=== PATIENT | male | born 1975 | race Caucasian/White ===

== ENCOUNTER 2016-08-04 08:21 | Emergency (ER) | payer SELFPAY ==
--- NOTE | 2016-08-04 10:14 | DIAGNOSTIC IMAGING REPORT ---
PROCEDURE: XR CHEST 2 VIEW INDICATION: COUGH ASPLENIC TECHNIQUE: PA and lateral view. COMPARISON: None. FINDINGS: Right basilar probable nipple shadow. Cardiovascular structures are normal. Bony thorax is unremarkable. IMPRESSION: 1. No acute changes.
--- NOTE | 2016-08-04 13:17 | ED NURSING NOTES ---
Clinical Report - Nurses [facility] [address] [place] [address] 08/04/2016 8:23 Patient: MENDEL OLEARY JR TRIAGE Triage time 08:27. Acuity: LEVEL 3. Chief Complaint: COUGH and (dyspnea). Alert. CARLA COMA SCORE: Carla Coma Scale: 15- eyes open spontaneously (4); best verbal response- oriented x 4 (5); best motor response- obeys commands (6). --08:31 Colleen Iglesias R.N. 08:27 08/04/16. BP: 132/75. HR: 103. RR: 18. O2 saturation: 93%. Temp: 98 F (oral). --08:31 Colleen Iglesias R.N. 10:46 08/04/16. Pain level now: 03/24. --10:47 Colleen Iglesias R.N. Weight: 104.3 kg stated. Height/Length: 66 inches Per Patient. BMI: 37.1. --08:30 Colleen Iglesias R.N. Medications None. --08:28 Colleen Iglesias R.N. Medication/allergy information source: the patient. --08:31 Colleen Iglesias R.N. Allergies No Known Drug Allergy. --08:28 Colleen Iglesias R.N. History Arrived by private vehicle. Historian: patient. Accompanied by family. Primary physician (Kristine). Onset. (a "couple days"). SOCIAL HX: Heavy tobacco smoker- less than 1 pack per day. No alcohol use or drug use. FALL RISK ASSESSMENT: Fall risk assessment completed. No fall risk identified. FUNCTIONAL ASSESSMENT: Functional assessment: no impairments noted. LEARNING NEEDS ASSESSMENT: The learning needs assessment revealed no barriers. --08:31 Colleen Iglesias R.N. PROBLEMS: Hypertension. Back Pain. Hernia. Immunizations. --08:29 Colleen Iglesias R.N. ADDITIONAL SURGERIES: Splenectomy. --08:29 Colleen Iglesias R.N. Assessment GENERAL / NEURO / PSYCH: The patient is awake and alert, is oriented and cooperative and appears uncomfortable. He has good eye contact. RESPIRATORY: Respirations not labored. Cough. SKIN: Skin is warm and dry. --08:31 Colleen Iglesias R.N. Interventions ID band on patient. To treatment room. --08:31 Colleen Iglesias R.N. PHYSICAL ASSESSMENT 08:34 08/04/16. Ambulatory to room. Patient gowned. GENERAL / NEURO / PSYCH: The patient is awake and alert, is oriented and cooperative and appears uncomfortable. He has good eye contact. RESPIRATORY: Respirations not labored. Cough. SKIN: Skin is warm and dry. --08:34 Colleen Iglesias R.N. NURSING PROGRESS NOTES 08:35 08/04/16. Pulse oximeter and NIBP monitor placed on patient. Patient gowned. Head of bed elevated. Call light placed in reach. Side rails up x 1. Bed placed in lowest position. Brakes of bed on. --08:35 Colleen Iglesias R.N. EKG was performed by a cayetano and shown to the ED physician. --08:47 Vipul Gomez 09:16 08/04/16. Critical value relayed to ED by lab. Critical value received by RN. Strep - positive. Critical value read back. --09:16 Colleen Iglesias R.N. 09:19 08/04/2016 Site #1 started via IV in the right forearm with an 18g angiocath, with aseptic technique and good blood return; one attempt. Blood drawn: rainbow set. Labeled in the presence of the patient and sent to the lab. Saline lock flushed with 10 mL saline. --09:19 Genet Serrano R.N. 09:08/04/2016 Toradol IVP 30 mg given over 2 minute(s) via site #1. Allergies verified and confirmed 5 rights. IV patency established. IV site checked: no pain, redness, or swelling. IV flushed thoroughly pre- and post-medication administration. --09:19 Genet Serrano R.N. 09:19 08/04/2016 Started bag #1 1000 mL IV Fluids IV NS (Saline); at 1000 mL/hr over 1 hour(s) via site #1 via dial-a-flow. Allergies verified and confirmed 5 rights. IV patency established. IV site checked: no pain, redness, or swelling. IV flushed thoroughly pre- and post-medication administration. --09:19 Genet Serrano R.N. 09:44 08/04/2016 Penicillin V Potassium PO Capsules 500 mg given. Allergies verified and confirmed 5 rights. --09:44 Genet Serrano R.N. 09:48 08/04/2016 PHENERGAN-CODEINE (Promethazine-Codeine) PO Oral Suspension 10 mL given. Allergies verified and confirmed 5 rights. --09:48 Genet Serrano R.N. 09:48 08/04/2016 Prednisone PO Capsules 60 mg given. Allergies verified and confirmed 5 rights. --09:48 Genet Serrano R.N. 09:00 08/04/16. BP: 128/82. HR: 104. RR: 22. O2 saturation: 95% on room air. --10:16 Genet Serrano R.N. 10:25 pt had disconntcted the IV tubing from the SL and had his jacket on when I went in to discharge him; he stated he tied the tubing in a knot and threw the lock in the trash, I asked to see the IV site for my documentation and he took his jacket off and the SL was still intact in his right forearm, lock was DC'd by me, bacitracin and bandaid were applied. --10:40 Colleen Iglesias R.N. 10:30. Reassessment after fluids administered and medication administered. Overall patient status is the same- he states feels the same. RESPIRATORY: The patient reports cough. No respiratory distress. SKIN: Skin is warm and dry. --10:42 Colleen Iglesias R.N. DISPOSITION / DISCHARGE 10:13 08/04/16. BP: 111/53. HR: 101. RR: 20. O2 saturation: 95%. --10:14 Genet Serrano R.N. Departure time: 1030. Condition at departure: stable. No learning barriers present. Discharge instructions provided and reviewed with the patient. Reviewed medication(s). Prescription(s) given to the patient. Patient verbalized understanding. Written instructions provided in Divehi. The patient was discharged home and accompanied by welding tester. He left the Emergency Department ambulatory and via private vehicle. FALL RISK ASSESSMENT: Fall risk assessment completed. No fall risk identified. --10:44 Colleen Iglesias R.N. Locked/Released at 08/04/2016 10:47 by Colleen Iglesias R.N.
--- NOTE | 2016-08-04 13:17 | ED CLINICAL REPORT ---
Clinical Report - Physicians/Mid Levels [facility]ly [facility] [address] [place] [address] 08/04/2016 8:23 Patient: MENDEL OLEARY JR Time Seen: 0845. Arrived- By private vehicle. Historian- patient. HISTORY OF PRESENT ILLNESS Chief Complaint: SORE THROAT. This started past 2 days and is still present and worsening. It was abrupt in onset and has been constant but is not gone now. Pain described as moderate. The patient has had a sore throat. (non-productive cough. no fever. reports no sick contacts. 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 reports throat swelling which he states makes it difficult to breath. does not report dyspnea or chest pain.). Similar symptoms previously: None. Recent medical care: Not recently seen/assessed. REVIEW OF SYSTEMS No fever or difficulty breathing. He has had a cough. All systems otherwise negative, except as recorded above. PAST HISTORY See nurses notes. SOCIAL HISTORY Smoker- current status unknown. No alcohol use or drug use. No recent travel. Is a local resident. ADDITIONAL NOTES The nursing notes have been reviewed. PHYSICAL EXAM Vital Signs: 08/04/2016 08:27 BP: 132/75. HR: 103. RR: 18. O2 saturation: 93%. Temp: 98 F. Blood pressure normal. Oxygen saturation normal. Appearance: Alert. No acute distress. Head: Normal external inspection. Eyes: Pupils equal, round and reactive to light. Conjunctivae and eyelids normal. ENT: Ears normal. Nose normal. Lips normal. Gums normal. No trismus present. Uvula midline. No peritonsillar mass, muffled or hoarse voice, drooling or trismus. (bilateral beefy red tonsils). Neck: Trachea midline. No adenopathy. Thyroid normal. CVS: Normal heart rate and rhythm. Heart sounds normal. Pulses normal. Respiratory: No respiratory distress. Breath sounds normal. Chest nontender. Abdomen: Soft and nontender. No organomegaly. Skin: Normal skin color. No rash. Normal skin turgor. Extremities: Extremities exhibit normal ROM. Extremities nontender. LABS, X-RAYS, AND EKG Chest X-ray: No acute disease. Normal lung markings present. No infiltrate. Views: PA and lateral. The X-rays were independently viewed by me and interpreted contemporaneously by me. Laboratory Tests: CBC w Diff: (KIMANI: 08/04/2016 09:20) ( MsgRcvd 08/04/2016 09:46) Final results Test Result Flag Units (Reference) WHITE BLOOD COUNT 18.8 H K/uL (4.5-11.5) RED BLOOD COUNT 4.82 M/uL (4.50-5.90) HEMOGLOBIN 14.8 gm/dL (13.5-17.5) HEMATOCRIT 44.6 % (41.0-53.0) MEAN CELL VOLUME 92 fL (80-100) MEAN CORPUSCULAR HGB 31 pg (26-34) MEAN CORPUSCULAR HGB CONC 33 g/dL (31-37) RED CELL DISTRIBUTION WIDTH 13.9 % (11.6-14.8) PLATELET COUNT 284 K/uL (150-400) NEUTROPHIL % 74.1 % (50-75) LYMPH % 17.2 L % (25-40) MONO % 5.6 % (3-14) EOSINOPHIL % 2.7 % (0-4) BASOPHIL % 0.4 % (0-2) CMP: (KIMANI: 08/04/2016 09:20) ( MsgRcvd 08/04/2016 10:15) Final results Test Result Flag Units (Reference) GLUCOSE 143 H mg/dL (70-110) BUN 20 H mg/dL (7-18) CREATININE 1.0 mg/dL (0.6-1.3) Estimated GFR >60 mL/min Estimated GFR- >60 mL/min Note: Persistent reduction over 3 months in eGFR<60 mL/min/1.73 m2 defines CKD. Patients with eGFR values>=60 mL/min/1.73 m2 may also have CKD if evidence ofpersistent proteinuria. Additional information may be foundat www.kidney.org. SODIUM 136 mmol/L (136-145) POTASSIUM 4.1 mmol/L (3.5-5.1) CHLORIDE 102 mmol/L (98-107) CARBON DIOXIDE 24 mmol/L (21-32) CALCIUM 9.2 mg/dL (8.5-10.1) TOTAL PROTEIN 8.1 g/dL (6.4-8.2) ALBUMIN 3.9 g/dL (3.3-5.0) BILIRUBIN, TOTAL 0.6 mg/dL (0.0-1.0) ALKALINE PHOSPHATASE 113 U/L (46-116) AST (SGOT) 44 H U/L (15-37) ALT (SGPT) 37 U/L (12-78) Culture, Strep Screen: (KIMANI: 08/04/2016 08:50) ( MsgRcvd 08/04/2016 09:15) Final results Test Result Flag Units (Reference) RAPID STREP SCREEN - THROAT CALLED TO: [facility] -- DATE: 08/04/16 POSITIVE SCREEN: RAPID STREP SCREEN: POSITIVE FOR GROUP A STREP . PROGRESS AND PROCEDURES Course of Care: the patient is a 40-year-old male with past medical history significant for splenectomy presenting for evaluation of symptoms that are likely upper respiratory nature. Because the patient does have a history of splenectomy, however patient is at high risk for having serious bacterial infection. Patient will be monitored and worked up aggressively for possible serious infection. Workup includes blood work chest x-ray, and cultures for rapid strep. patient is agreeable to the treatment and plan. Workup has been ordered. We will monitor the patient closely. Shortly after the laboratory studies and chest x-ray was obtained, patient's rapid strep is noted to be positive. Antibiotics are provided. The rest of the patient's workup was remarkable for elevated white blood cell count at 18.8. No other acute abnormalities noted on patient's workup. I discussed the patient and his workup, diagnosis, home care, follow-up, and return precautions. All questions answered. The patient expressed understanding of these instructions and was agreeable to them. Do not feel the patient needs to be admitted to the hospital at this time or require further emergency department workup/evaluation. The patient does have his spleen taken out however because of the diagnosed etiology of his symptoms due to strep throat, feel patient is a good outpatient candidate. Strict return precautions were provided. Disposition: Discharged. Condition: good. CLINICAL IMPRESSION 08/04/2016 08:27 BP: 132/75. HR: 103. RR: 18. O2 saturation: 93%. Temp: 98 F. Blood pressure normal. Oxygen saturation: borderline. Acute streptococcal pharyngitis Mild leukocytosis (acute). INSTRUCTIONS Warnings: GENERAL WARNINGS: Return or contact your physician immediately if your condition worsens or changes unexpectedly, if not improving as expected, or if other problems arise. Specifically return if pain, vomiting, bleeding, breathing difficulty or fever. worsening swelling, inability to swallow or handle saliva, or other concerns. Your Current Medications: CONTINUE TAKING THE FOLLOWING MEDICATIONS: None*. Prescription Medications: Motrin 600 mg tablets: take 1 tablet orally every 6 hours as needed for pain, stiffness, swelling or fever. Dispense thirty (30). No refill. Substitution is permissible. Penicillin V 500 mg: take 1 tab orally every 12 hours for 10 days. Dispense twenty (20). No refills. (Disp 20 tabs) Phenergan w/ Codeine 10mg / 6.25mg per 5 mL: take 1-2 teaspoons every 6 hours as needed for pain or cough. Dispense sixty (60) mL. No refill. Substitution is permissible. Prednisone 50 mg: take 1 orally every day for 5 days. Dispense five (5). No refills. OTC Medications: Acetaminophen (available over the counter): take according to label instructions. Follow-up: Return to the emergency department. Follow up with your doctor in three days. Reason for referral: recheck today's concerns. Summary of care provided to patient via paper. Screening today revealed the patient's blood pressure to be in the normal range. The patient should follow up with a primary care provider for blood pressure management. Understanding of the discharge instructions verbalized by patient. (Electronically signed by Ranjith Toribio Dr. 08/06/2016 18:09)
--- NOTE | 2016-08-04 13:18 | ED ORDER SUMMARY ---
..... Patient: MENDEL OLEARY JR OrderSheet [facility] VisitID: [id number] [place] [address] 40y, M Registration Date/Time: 08/04/2016 ORDER SHEET Weight: 104.3 kg (stated) Allergies: No Known Drug Allergy GENERAL ORDERS: Chest 2V Urgent (08:53 08/04/2016 Joe Alcala) (Ack 9:03 LNations ER Tech1) (9:49 Alon R.N.) Rapid Influenza Screen (Nasal Pharyngeal) (mucus) Urgent (08:54 08/04/2016 Joe Alcala) (Ack 9:03 LNations ER Tech1) (9:19 LWhalen R.N.) RSV Rapid Screen (Nasal Pharyngeal) (mucus) Urgent (08:54 08/04/2016 Joe Alcala) (Ack 9:03 LNations ER Tech1) (9:19 LWhalen R.N.) CBC w Diff Urgent (08:54 08/04/2016 Joe Alcala) (Ack 9:03 LNations ER Tech1) (9:19 LWhalen R.N.) CMP Urgent (08:54 08/04/2016 Joe Alcala) (Ack 9:03 LNations ER Tech1) (9:19 LWhalen R.N.) Culture, Strep Screen Urgent (08:54 08/04/2016 Joe Alcala) (Ack 9:03 LNations ER Tech1) (9:19 LWhalen R.N.) Pulse oximeter (08:54 08/04/2016 Joe Alcala) (8:58 Alon R.N.) MEDICATION ORDERS: Penicillin V Potassium PO 500 mg (NOW) (09:08/04/2016 Joe Alcala) (9:44 LWhalen R.N.) Phenergan-Codeine PO 10 mL (HIGH ALERT MEDICATION, NOW) (09:25 08/04/2016 Joe Alcala) (9:48 LWhalen R.N.) Prednisone PO 60 mg (NOW) (09:30 08/04/2016 Joe Alcala) (9:48 LWhalen R.N.) IV FLUIDS: IV NS : initial bolus 1000 mL (1000 mL/hr), then none - for X1 (NOW) (08:53 08/04/2016 Joe Alcala) (9:19 John Ware) Toradol IV 30 mg (NOW) (08:54 08/04/2016 Joe Alcala) (9:19 John Ware) ORDER SHEET NOTES: [Electronically signed by Colleen Iglesias R.N. (10:47 08/04/2016)] [Electronically signed by Ranjith Toribio Dr. (18:09 08/06/2016)] [Electronically locked/signed by Colleen Iglesias R.N. (10:47 08/04/2016)]
--- NOTE | 2016-08-04 13:18 | ED ORDER SUMMARY ---
..... Patient: MENDEL OLEARY JR OrderSheet [facility]erg[facility] VisitID: [id number] [place] [address] 40y, M Registration Date/Time: 08/04/2016 ORDER SHEET Weight: 104.3 kg (stated) Allergies: No Known Drug Allergy GENERAL ORDERS: Chest 2V Urgent (08:53 08/04/2016 Joe Alcala) (Ack 9:03 LNations ER Tech1) (9:49 Alon R.N.) Rapid Influenza Screen (Nasal Pharyngeal) (mucus) Urgent (08:54 08/04/2016 Joe Alcala) (Ack 9:03 LNations ER Tech1) (9:19 LWhalen R.N.) RSV Rapid Screen (Nasal Pharyngeal) (mucus) Urgent (08:54 08/04/2016 Joe Alcala) (Ack 9:03 LNations ER Tech1) (9:19 LWhalen R.N.) CBC w Diff Urgent (08:54 08/04/2016 Joe Alcala) (Ack 9:03 LNations ER Tech1) (9:19 LWhalen R.N.) CMP Urgent (08:54 08/04/2016 Joe Alcala) (Ack 9:03 LNations ER Tech1) (9:19 LWhalen R.N.) Culture, Strep Screen Urgent (08:54 08/04/2016 Joe Alcala) (Ack 9:03 LNations ER Tech1) (9:19 LWhalen R.N.) Pulse oximeter (08:54 08/04/2016 Joe Alcala) (8:58 Alon R.N.) MEDICATION ORDERS: Penicillin V Potassium PO 500 mg (NOW) (09:08/04/2016 Joe Alcala) (9:44 LWhalen R.N.) Phenergan-Codeine PO 10 mL (HIGH ALERT MEDICATION, NOW) (09:25 08/04/2016 Joe Alcala) (9:48 LWhalen R.N.) Prednisone PO 60 mg (NOW) (09:30 08/04/2016 Joe Alcala) (9:48 LWhalen R.N.) IV FLUIDS: IV NS : initial bolus 1000 mL (1000 mL/hr), then none - for X1 (NOW) (08:53 08/04/2016 Joe Alcala) (9:19 John Ware) Toradol IV 30 mg (NOW) (08:54 08/04/2016 Joe Alcala) (9:19 John Ware) ORDER SHEET NOTES: [Electronically signed by Colleen Iglesias R.N. (10:47 08/04/2016)] [Electronically signed by Ranjith Toribio Dr. (18:09 08/06/2016)] [Electronically locked/signed by Colleen Iglesias R.N. (10:47 08/04/2016)]
--- NOTE | 2016-08-06 18:09 | ED MED RECONCILIATION SUMMARY ---
Patient: MENDEL OLEARY JR Medication Reconciliation Report [facility] VisitID: [id number] [address] [place] [address] 40y, M Registration Date/Time: 08/04/2016 Weight: 104.3 kg Height/Length: 66 in. BMI: 37.1 ALLERGIES: No Known Drug Allergy The patient's Home Medications are listed below: NONE. The source(s) of the original Home Medication information: patient The following Medications were given to the patient in the Emergency Department: Toradol [IVP] IVP 30 mg, administered: 08/04/2016 9:19:00 AM IV NS IV Fluids bolus 0, then 1000 mL/hr, administered: 08/04/2016 9:19:00 AM Penicillin V Potassium [PO] PO 500 mg, administered: 08/04/2016 9:44:00 AM PHENERGAN-CODEINE [PO] PO 10 mL, administered: 08/04/2016 9:48:00 AM Prednisone [PO] PO 60 mg, administered: 08/04/2016 9:48:00 AM The following Medications were prescribed to the patient: Acetaminophen (available over the counter): take according to label instructions. -- Ranjith Toribio Dr. Motrin 600 mg tablets: take 1 tablet orally every 6 hours as needed for pain, stiffness, swelling or fever. Dispense thirty (30). No refill. Substitution is permissible. -- Ranjith Toribio Dr. Penicillin V 500 mg: take 1 tab orally every 12 hours for 10 days. Dispense twenty (20). No refills.(Disp 20 tabs) -- Ranjith Toribio Dr. Phenergan w/ Codeine 10mg / 6.25mg per 5 mL: take 1-2 teaspoons every 6 hours as needed for pain or cough. Dispense sixty (60) mL. No refill. Substitution is permissible. -- Ranjith Toribio Dr. Prednisone 50 mg: take 1 orally every day for 5 days. Dispense five (5). No refills. -- Ranjith Toribio Dr.
--- NOTE | 2016-08-06 18:09 | ED MAR SUMMARY ---
..... Medication Administration Record [facility] [address] [place] [address] Patient: MENDEL OLEARY Visit ID: [id number] 40y, M Weight: 104.3 kg Height/Length: 66 in BMI: 37.1 ALLERGIES: No Known Drug Allergy Start 09:08/04/2016 Genet Serrano R.N. Medication Administered: IV NS (SALINE), Dose: IV Fluids over 1 hour(s), Rate: 1000 mL/hr, Dispensed: 1000 mL bag, Site: #1 right forearm. Medication Ordered: IV NS : initial bolus 1000 mL (1000 mL/hr), then none - for X1 (NOW). Given 09:08/04/2016 Genet Serrano R.N. Medication Administered: TORADOL [IVP], Dose: 30 mg IVP over 2 minute(s), Site: #1 right forearm. Medication Ordered: Toradol IV 30 mg (NOW). Given 09:08/04/2016 Genet Serrano R.N. Medication Administered: PENICILLIN V POTASSIUM [PO], Dose: 500 mg Capsules PO. Medication Ordered: Penicillin V Potassium PO 500 mg (NOW). Given 09:48 08/04/2016 Genet Serrano R.N. Medication Administered: PHENERGAN-CODEINE [PO] (PROMETHAZINE-CODEINE), Dose: 10 mL Oral Suspension PO. Medication Ordered: Phenergan-Codeine PO 10 mL (HIGH ALERT MEDICATION, NOW). Given 09:08/04/2016 Genet Serrano R.N. Medication Administered: PREDNISONE [PO], Dose: 60 mg Capsules PO. Medication Ordered: Prednisone PO 60 mg (NOW).
--- NOTE | 2016-08-06 18:09 | ED DISCHARGE INSTRUCTIONS ---
Patient: MENDEL OLEARY JR General Instructions Located Within [facility] VisitID: [id number] [place] [address] 40y, M Registration Date/Time: 08/04/2016 08/04/2016 08:27 BP: 132/75. HR: 103. RR: 18. O2 saturation: 93%. Temp: 98 F. Blood pressure normal. Oxygen saturation: borderline. Acute streptococcal pharyngitis Mild leukocytosis (acute). INSTRUCTIONS Warnings: GENERAL WARNINGS: Return or contact your physician immediately if your condition worsens or changes unexpectedly, if not improving as expected, or if other problems arise. Specifically return if pain, vomiting, bleeding, breathing difficulty or fever. worsening swelling, inability to swallow or handle saliva, or other concerns. Your Current Medications: CONTINUE TAKING THE FOLLOWING MEDICATIONS: None*. Prescription Medications: Motrin 600 mg tablets: take 1 tablet orally every 6 hours as needed for pain, stiffness, swelling or fever. Dispense thirty (30). No refill. Substitution is permissible. Penicillin V 500 mg: take 1 tab orally every 12 hours for 10 days. Dispense twenty (20). No refills. (Disp 20 tabs) Phenergan w/ Codeine 10mg / 6.25mg per 5 mL: take 1-2 teaspoons every 6 hours as needed for pain or cough. Dispense sixty (60) mL. No refill. Substitution is permissible. Prednisone 50 mg: take 1 orally every day for 5 days. Dispense five (5). No refills. OTC Medications: Acetaminophen (available over the counter): take according to label instructions. Follow-up: Return to the emergency department. Follow up with your doctor in three days. Reason for referral: recheck today's concerns. Summary of care provided to patient via paper. Screening today revealed the patient's blood pressure to be in the normal range. The patient should follow up with a primary care provider for blood pressure management. Understanding of the discharge instructions verbalized by patient. ADDITIONAL INFORMATION Pharyngitis: Strep [Confirmed] Your test for strep throat was positive. Strep throat is a contagious illness. It is spread by coughing, kissing or by touching others after touching your mouth or nose. Symptoms include throat pain which is worse with swallowing, aching all over, headache and fever. You will be treated with an antibiotic which should make you start to feel better within 1-2 days. Home Care: Rest at home and drink plenty of fluids to avoid dehydration. No school or work for the first two days on antibiotics. You will not be contagious after this time and if you are feeling better, you can return to school or work. Take your antibiotics for a full 10 days, even if you feel better after the first few days of treatment. This is very important to prevent heart or kidney disease that can result as a complication of untreated strep throat infection. Children: Use acetaminophen (Tylenol) for fever, fussiness or discomfort. In infants over six months of age, you may use ibuprofen (Children's Motrin) instead of Tylenol. [NOTE: If your child has chronic liver or kidney disease or ever had a stomach ulcer or GI bleeding, talk with your doctor before using these medicines.] (Aspirin should never be used in anyone under 18 years of age who is ill with a fever. It may cause severe liver damage.)Adults: You may use acetaminophen (Tylenol) or ibuprofen (Motrin, Advil) to control pain or fever, unless another medicine was prescribed for this. [NOTE: If you have chronic liver or kidney disease or ever had a stomach ulcer or GI bleeding, talk with your doctor before using these medicines.] Throat lozenges or sprays (Chloraseptic and others) will reduce pain. Gargling with warm salt water will also reduce throat pain. Dissolve 1/2 teaspoon of salt in 1 glass of warm water. This is especially useful just before meals. Follow Up with your doctor or as directed by our staff if you are not improving over the next week. Get Prompt Medical Attention if any of the following occur: Fever of 100.4F (38C) oral or higher, not better with fever medication New or worsening ear pain, sinus pain or headache Painful lumps in the back of your neck Unable to swallow liquids or open your mouth wide due to throat pain Trouble breathing or noisy breathing Muffled voice New rash Ibuprofen Oral tablet What is this medicine? IBUPROFEN (eye BYOO proe fen) is a non-steroidal anti-inflammatory drug (NSAID). It is used for dental pain, fever, headaches or migraines, osteoarthritis, rheumatoid arthritis, or painful monthly periods. It can also relieve minor aches and pains caused by a cold, flu, or sore throat. How should I use this medicine? Take this medicine by mouth with a glass of water. Follow the directions on the prescription label. Take this medicine with food if your stomach gets upset. Try to not lie down for at least 10 minutes after you take the medicine. Take your medicine at regular intervals. Do not take your medicine more often than directed. A special MedGuide will be given to you by the pharmacist with each prescription and refill. Be sure to read this information carefully each time. Talk to your energy audit advisor regarding the use of this medicine in children. Special care may be needed. What side effects may I notice from receiving this medicine? Side effects that you should report to your doctor or health childcare center administrator as soon as possible: allergic reactions like skin rash, itching or hives, swelling of the face, lips, or tongue black or bloody stools, blood in the urine or in vomit breathing problems changes in vision chest pain general ill feeling or flu-like symptoms nausea or vomiting redness, blistering, peeling or loosening of the skin, including inside the mouth slurred speech or weakness on one side of the body stomach pain unexplained weight gain or swelling unusually weak or tired yellowing of eyes or skin Side effects that usually do not require medical attention (report to your doctor or health childcare center administrator if they continue or are bothersome): constipation or diarrhea dizziness gas or heartburn stomach upset What may interact with this medicine? Do not take this medicine with any of the following medications: cidofovir ketorolac methotrexate pemetrexed This medicine may also interact with the following medications: alcohol aspirin diuretics lithium other drugs for inflammation like prednisone warfarin What if I miss a dose? If you miss a dose, take it as soon as you can. If it is almost time for your next dose, take only that dose. Do not take double or extra doses. Where should I keep my medicine? Keep out of the reach of children. Store at room temperature between 15 and 30 degrees C (59 and 86 degrees F). Keep container tightly closed. Throw away any unused medicine after the expiration date. What should I tell my health care provider before I take this medicine? They need to know if you have any of these conditions: asthma cigarette smoker drink more than 3 alcohol containing drinks a day heart disease or circulation problems such as heart failure or leg edema (fluid retention) high blood pressure kidney disease liver disease stomach bleeding or ulcers an unusual or allergic reaction to ibuprofen, aspirin, other NSAIDS, other medicines, foods, dyes, or preservatives or trying to get breast-feeding What should I watch for while using this medicine? Tell your doctor or healthcare professional if your symptoms do not start to get better or if they get worse. This medicine does not prevent heart attack or stroke. In fact, this medicine may increase the chance of a heart attack or stroke. The chance may increase with longer use of this medicine and in people who have heart disease. If you take aspirin to prevent heart attack or stroke, talk with your doctor or health childcare center administrator. Do not take other medicines that contain aspirin, ibuprofen, or naproxen with this medicine. Side effects such as stomach upset, nausea, or ulcers may be more likely to occur. Many medicines available without a prescription should not be taken with this medicine. This medicine can cause ulcers and bleeding in the stomach and intestines at any time during treatment. Ulcers and bleeding can happen without warning symptoms and can cause . To reduce your risk, do not smoke cigarettes or drink alcohol while you are taking this medicine. You may get drowsy or dizzy. Do not drive, use machinery, or do anything that needs mental alertness until you know how this medicine affects you. Do not stand or sit up quickly, especially if you are an older patient. This reduces the risk of dizzy or fainting spells. This medicine can cause you to bleed more easily. Try to avoid damage to your teeth and gums when you brush or floss your teeth. Penicillin V Potassium Oral tablet What is this medicine? PENICILLIN V (pen i SILL in V) is a penicillin antibiotic. It is used to treat certain kinds of bacterial infections. It will not work for colds, flu, or other viral infections. How should I use this medicine? Take this medicine by mouth with a full glass of water. Follow the directions on the prescription label. Take your medicine at regular intervals. Do not take your medicine more often than directed. Take all of your medicine as directed even if you think your are better. Do not skip doses or stop your medicine early. Talk to your energy audit advisor regarding the use of this medicine in children. While this drug may be prescribed for selected conditions, precautions do apply. What side effects may I notice from receiving this medicine? Side effects that you should report to your doctor or health childcare center administrator as soon as possible: allergic reactions like skin rash or hives, swelling of the face, lips, or tongue breathing problems fever new symptoms of infection redness, blistering, peeling or loosening of the skin, including inside the mouth unusually weak or tired Side effects that usually do not require medical attention (report to your doctor or health childcare center administrator if they continue or are bothersome): diarrhea headache nausea, vomiting sore mouth or tongue stomach upset What may interact with this medicine? control pills methotrexate other antibiotics probenecid some vaccines What if I miss a dose? If you miss a dose, take it as soon as you can. If it is almost time for your next dose, take only that dose. Do not take double or extra doses. Where should I keep my medicine? Keep out of the reach of children. Store at room temperature between 15 and 30 degrees C (59 and 86 degrees F). Keep container tightly closed. Throw away any unused medicine after the expiration date. What should I tell my health care provider before I take this medicine? They need to know if you have any of these conditions: asthma bowel disease, like colitis eczema kidney disease an unusual or allergic reaction to penicillin, cephalosporins, other antibiotics or medicines, foods, tartrazine or other dyes, or preservatives or trying to get breast-feeding What should I watch for while using this medicine? Tell your doctor or health childcare center administrator if your symptoms do not improve. Do not treat diarrhea with over the counter products. Contact your doctor if you have diarrhea that lasts more than 2 days or if it is severe and watery. If you have diabetes, you may get a false-positive result for sugar in your urine. Check with your doctor or health childcare center administrator. control pills may not work properly while you are taking this medicine. Talk to your doctor about using an extra method of control. Prednisone Oral tablet What is this medicine? PREDNISONE (PRED ni sone) is a corticosteroid. It is commonly used to treat inflammation of the skin, joints, lungs, and other organs. Common conditions treated include asthma, allergies, and arthritis. It is also used for other conditions, such as blood disorders and diseases of the adrenal glands. How should I use this medicine? Take this medicine by mouth with a glass of water. Follow the directions on the prescription label. Take this medicine with food. If you are taking this medicine once a day, take it in the morning. Do not take more medicine than you are told to take. Do not suddenly stop taking your medicine because you may develop a severe reaction. Your doctor will tell you how much medicine to take. If your doctor wants you to stop the medicine, the dose may be slowly lowered over time to avoid any side effects. Talk to your energy audit advisor regarding the use of this medicine in children. Special care may be needed. What side effects may I notice from receiving this medicine? Side effects that you should report to your doctor or health childcare center administrator as soon as possible: allergic reactions like skin rash, itching or hives, swelling of the face, lips, or tongue changes in emotions or moods changes in vision depressed mood eye pain fever or chills, cough, sore throat, pain or difficulty passing urine increased thirst swelling of ankles, feet Side effects that usually do not require medical attention (report to your doctor or health childcare center administrator if they continue or are bothersome): confusion, excitement, restlessness headache nausea, vomiting skin problems, acne, thin and shiny skin trouble sleeping weight gain What may interact with this medicine? Do not take this medicine with any of the following medications: metyrapone mifepristone This medicine may also interact with the following medications: aminoglutethimide amphotericin B aspirin and aspirin-like medicines barbiturates certain medicines for diabetes, like glipizide or glyburide cholestyramine cholinesterase inhibitors cyclosporine digoxin diuretics ephedrine female hormones, like estrogens and control pills isoniazid ketoconazole NSAIDS, medicines for pain and inflammation, like ibuprofen or naproxen phenytoin rifampin toxoids vaccines warfarin What if I miss a dose? If you miss a dose, take it as soon as you can. If it is almost time for your next dose, talk to your doctor or health childcare center administrator. You may need to miss a dose or take an extra dose. Do not take double or extra doses without advice. Where should I keep my medicine? Keep out of the reach of children. Store at room temperature between 15 and 30 degrees C (59 and 86 degrees F). Protect from light. Keep container tightly closed. Throw away any unused medicine after the expiration date. What should I tell my health care provider before I take this medicine? They need to know if you have any of these conditions: Louis's syndrome diabetes glaucoma heart disease high blood pressure infection (especially a virus infection such as chickenpox, cold sores, or herpes) kidney disease liver disease mental illness myasthenia gravis osteoporosis seizures stomach or intestine problems thyroid disease an unusual or allergic reaction to lactose, prednisone, other medicines, foods, dyes, or preservatives or trying to get breast-feeding What should I watch for while using this medicine? Visit your doctor or health childcare center administrator for regular checks on your progress. If you are taking this medicine over a prolonged period, carry an identification card with your name and address, the type and dose of your medicine, and your doctor's name and address. This medicine may increase your risk of getting an infection. Tell your doctor or health childcare center administrator if you are around anyone with measles or chickenpox, or if you develop sores or blisters that do not heal properly. If you are going to have surgery, tell your doctor or health childcare center administrator that you have taken this medicine within the last twelve months. Ask your doctor or health childcare center administrator about your diet. You may need to lower the amount of salt you eat. This medicine may affect blood sugar levels. If you have diabetes, check with your doctor or health childcare center administrator before you change your diet or the dose of your diabetic medicine. You have been given the following additional information: Pharyngitis, Strep (Confirmed) Ibuprofen Oral tablet Penicillin V Potassium Oral tablet Prednisone Oral tablet (Electronically signed by Ranjith Toribio Dr. 08/06/2016 18:09)
--- NOTE | 2016-08-06 18:09 | ED DISCHARGE INSTRUCTIONS ---
Patient: MENDEL OLEARY JR General Instructions [facility] VisitID: [id number] [place] [address] 40y, M Registration Date/Time: 08/04/2016 08/04/2016 08:27 BP: 132/75. HR: 103. RR: 18. O2 saturation: 93%. Temp: 98 F. Blood pressure normal. Oxygen saturation: borderline. Acute streptococcal pharyngitis Mild leukocytosis (acute). INSTRUCTIONS Warnings: GENERAL WARNINGS: Return or contact your physician immediately if your condition worsens or changes unexpectedly, if not improving as expected, or if other problems arise. Specifically return if pain, vomiting, bleeding, breathing difficulty or fever. worsening swelling, inability to swallow or handle saliva, or other concerns. Your Current Medications: CONTINUE TAKING THE FOLLOWING MEDICATIONS: None*. Prescription Medications: Motrin 600 mg tablets: take 1 tablet orally every 6 hours as needed for pain, stiffness, swelling or fever. Dispense thirty (30). No refill. Substitution is permissible. Penicillin V 500 mg: take 1 tab orally every 12 hours for 10 days. Dispense twenty (20). No refills. (Disp 20 tabs) Phenergan w/ Codeine 10mg / 6.25mg per 5 mL: take 1-2 teaspoons every 6 hours as needed for pain or cough. Dispense sixty (60) mL. No refill. Substitution is permissible. Prednisone 50 mg: take 1 orally every day for 5 days. Dispense five (5). No refills. OTC Medications: Acetaminophen (available over the counter): take according to label instructions. Follow-up: Return to the emergency department. Follow up with your doctor in three days. Reason for referral: recheck today's concerns. Summary of care provided to patient via paper. Screening today revealed the patient's blood pressure to be in the normal range. The patient should follow up with a primary care provider for blood pressure management. Understanding of the discharge instructions verbalized by patient. ADDITIONAL INFORMATION Pharyngitis: Strep [Confirmed] Your test for strep throat was positive. Strep throat is a contagious illness. It is spread by coughing, kissing or by touching others after touching your mouth or nose. Symptoms include throat pain which is worse with swallowing, aching all over, headache and fever. You will be treated with an antibiotic which should make you start to feel better within 1-2 days. Home Care: Rest at home and drink plenty of fluids to avoid dehydration. No school or work for the first two days on antibiotics. You will not be contagious after this time and if you are feeling better, you can return to school or work. Take your antibiotics for a full 10 days, even if you feel better after the first few days of treatment. This is very important to prevent heart or kidney disease that can result as a complication of untreated strep throat infection. Children: Use acetaminophen (Tylenol) for fever, fussiness or discomfort. In infants over six months of age, you may use ibuprofen (Children's Motrin) instead of Tylenol. [NOTE: If your child has chronic liver or kidney disease or ever had a stomach ulcer or GI bleeding, talk with your doctor before using these medicines.] (Aspirin should never be used in anyone under 18 years of age who is ill with a fever. It may cause severe liver damage.)Adults: You may use acetaminophen (Tylenol) or ibuprofen (Motrin, Advil) to control pain or fever, unless another medicine was prescribed for this. [NOTE: If you have chronic liver or kidney disease or ever had a stomach ulcer or GI bleeding, talk with your doctor before using these medicines.] Throat lozenges or sprays (Chloraseptic and others) will reduce pain. Gargling with warm salt water will also reduce throat pain. Dissolve 1/2 teaspoon of salt in 1 glass of warm water. This is especially useful just before meals. Follow Up with your doctor or as directed by our staff if you are not improving over the next week. Get Prompt Medical Attention if any of the following occur: Fever of 100.4F (38C) oral or higher, not better with fever medication New or worsening ear pain, sinus pain or headache Painful lumps in the back of your neck Unable to swallow liquids or open your mouth wide due to throat pain Trouble breathing or noisy breathing Muffled voice New rash Ibuprofen Oral tablet What is this medicine? IBUPROFEN (eye BYOO proe fen) is a non-steroidal anti-inflammatory drug (NSAID). It is used for dental pain, fever, headaches or migraines, osteoarthritis, rheumatoid arthritis, or painful monthly periods. It can also relieve minor aches and pains caused by a cold, flu, or sore throat. How should I use this medicine? Take this medicine by mouth with a glass of water. Follow the directions on the prescription label. Take this medicine with food if your stomach gets upset. Try to not lie down for at least 10 minutes after you take the medicine. Take your medicine at regular intervals. Do not take your medicine more often than directed. A special MedGuide will be given to you by the pharmacist with each prescription and refill. Be sure to read this information carefully each time. Talk to your education diagnostician regarding the use of this medicine in children. Special care may be needed. What side effects may I notice from receiving this medicine? Side effects that you should report to your doctor or health health care social worker as soon as possible: allergic reactions like skin rash, itching or hives, swelling of the face, lips, or tongue black or bloody stools, blood in the urine or in vomit breathing problems changes in vision chest pain general ill feeling or flu-like symptoms nausea or vomiting redness, blistering, peeling or loosening of the skin, including inside the mouth slurred speech or weakness on one side of the body stomach pain unexplained weight gain or swelling unusually weak or tired yellowing of eyes or skin Side effects that usually do not require medical attention (report to your doctor or health health care social worker if they continue or are bothersome): constipation or diarrhea dizziness gas or heartburn stomach upset What may interact with this medicine? Do not take this medicine with any of the following medications: cidofovir ketorolac methotrexate pemetrexed This medicine may also interact with the following medications: alcohol aspirin diuretics lithium other drugs for inflammation like prednisone warfarin What if I miss a dose? If you miss a dose, take it as soon as you can. If it is almost time for your next dose, take only that dose. Do not take double or extra doses. Where should I keep my medicine? Keep out of the reach of children. Store at room temperature between 15 and 30 degrees C (59 and 86 degrees F). Keep container tightly closed. Throw away any unused medicine after the expiration date. What should I tell my health care provider before I take this medicine? They need to know if you have any of these conditions: asthma cigarette smoker drink more than 3 alcohol containing drinks a day heart disease or circulation problems such as heart failure or leg edema (fluid retention) high blood pressure kidney disease liver disease stomach bleeding or ulcers an unusual or allergic reaction to ibuprofen, aspirin, other NSAIDS, other medicines, foods, dyes, or preservatives or trying to get breast-feeding What should I watch for while using this medicine? Tell your doctor or healthcare professional if your symptoms do not start to get better or if they get worse. This medicine does not prevent heart attack or stroke. In fact, this medicine may increase the chance of a heart attack or stroke. The chance may increase with longer use of this medicine and in people who have heart disease. If you take aspirin to prevent heart attack or stroke, talk with your doctor or health health care social worker. Do not take other medicines that contain aspirin, ibuprofen, or naproxen with this medicine. Side effects such as stomach upset, nausea, or ulcers may be more likely to occur. Many medicines available without a prescription should not be taken with this medicine. This medicine can cause ulcers and bleeding in the stomach and intestines at any time during treatment. Ulcers and bleeding can happen without warning symptoms and can cause . To reduce your risk, do not smoke cigarettes or drink alcohol while you are taking this medicine. You may get drowsy or dizzy. Do not drive, use machinery, or do anything that needs mental alertness until you know how this medicine affects you. Do not stand or sit up quickly, especially if you are an older patient. This reduces the risk of dizzy or fainting spells. This medicine can cause you to bleed more easily. Try to avoid damage to your teeth and gums when you brush or floss your teeth. Penicillin V Potassium Oral tablet What is this medicine? PENICILLIN V (pen i SILL in V) is a penicillin antibiotic. It is used to treat certain kinds of bacterial infections. It will not work for colds, flu, or other viral infections. How should I use this medicine? Take this medicine by mouth with a full glass of water. Follow the directions on the prescription label. Take your medicine at regular intervals. Do not take your medicine more often than directed. Take all of your medicine as directed even if you think your are better. Do not skip doses or stop your medicine early. Talk to your education diagnostician regarding the use of this medicine in children. While this drug may be prescribed for selected conditions, precautions do apply. What side effects may I notice from receiving this medicine? Side effects that you should report to your doctor or health health care social worker as soon as possible: allergic reactions like skin rash or hives, swelling of the face, lips, or tongue breathing problems fever new symptoms of infection redness, blistering, peeling or loosening of the skin, including inside the mouth unusually weak or tired Side effects that usually do not require medical attention (report to your doctor or health health care social worker if they continue or are bothersome): diarrhea headache nausea, vomiting sore mouth or tongue stomach upset What may interact with this medicine? control pills methotrexate other antibiotics probenecid some vaccines What if I miss a dose? If you miss a dose, take it as soon as you can. If it is almost time for your next dose, take only that dose. Do not take double or extra doses. Where should I keep my medicine? Keep out of the reach of children. Store at room temperature between 15 and 30 degrees C (59 and 86 degrees F). Keep container tightly closed. Throw away any unused medicine after the expiration date. What should I tell my health care provider before I take this medicine? They need to know if you have any of these conditions: asthma bowel disease, like colitis eczema kidney disease an unusual or allergic reaction to penicillin, cephalosporins, other antibiotics or medicines, foods, tartrazine or other dyes, or preservatives or trying to get breast-feeding What should I watch for while using this medicine? Tell your doctor or health health care social worker if your symptoms do not improve. Do not treat diarrhea with over the counter products. Contact your doctor if you have diarrhea that lasts more than 2 days or if it is severe and watery. If you have diabetes, you may get a false-positive result for sugar in your urine. Check with your doctor or health health care social worker. control pills may not work properly while you are taking this medicine. Talk to your doctor about using an extra method of control. Prednisone Oral tablet What is this medicine? PREDNISONE (PRED ni sone) is a corticosteroid. It is commonly used to treat inflammation of the skin, joints, lungs, and other organs. Common conditions treated include asthma, allergies, and arthritis. It is also used for other conditions, such as blood disorders and diseases of the adrenal glands. How should I use this medicine? Take this medicine by mouth with a glass of water. Follow the directions on the prescription label. Take this medicine with food. If you are taking this medicine once a day, take it in the morning. Do not take more medicine than you are told to take. Do not suddenly stop taking your medicine because you may develop a severe reaction. Your doctor will tell you how much medicine to take. If your doctor wants you to stop the medicine, the dose may be slowly lowered over time to avoid any side effects. Talk to your education diagnostician regarding the use of this medicine in children. Special care may be needed. What side effects may I notice from receiving this medicine? Side effects that you should report to your doctor or health health care social worker as soon as possible: allergic reactions like skin rash, itching or hives, swelling of the face, lips, or tongue changes in emotions or moods changes in vision depressed mood eye pain fever or chills, cough, sore throat, pain or difficulty passing urine increased thirst swelling of ankles, feet Side effects that usually do not require medical attention (report to your doctor or health health care social worker if they continue or are bothersome): confusion, excitement, restlessness headache nausea, vomiting skin problems, acne, thin and shiny skin trouble sleeping weight gain What may interact with this medicine? Do not take this medicine with any of the following medications: metyrapone mifepristone This medicine may also interact with the following medications: aminoglutethimide amphotericin B aspirin and aspirin-like medicines barbiturates certain medicines for diabetes, like glipizide or glyburide cholestyramine cholinesterase inhibitors cyclosporine digoxin diuretics ephedrine female hormones, like estrogens and control pills isoniazid ketoconazole NSAIDS, medicines for pain and inflammation, like ibuprofen or naproxen phenytoin rifampin toxoids vaccines warfarin What if I miss a dose? If you miss a dose, take it as soon as you can. If it is almost time for your next dose, talk to your doctor or health health care social worker. You may need to miss a dose or take an extra dose. Do not take double or extra doses without advice. Where should I keep my medicine? Keep out of the reach of children. Store at room temperature between 15 and 30 degrees C (59 and 86 degrees F). Protect from light. Keep container tightly closed. Throw away any unused medicine after the expiration date. What should I tell my health care provider before I take this medicine? They need to know if you have any of these conditions: Louis's syndrome diabetes glaucoma heart disease high blood pressure infection (especially a virus infection such as chickenpox, cold sores, or herpes) kidney disease liver disease mental illness myasthenia gravis osteoporosis seizures stomach or intestine problems thyroid disease an unusual or allergic reaction to lactose, prednisone, other medicines, foods, dyes, or preservatives or trying to get breast-feeding What should I watch for while using this medicine? Visit your doctor or health health care social worker for regular checks on your progress. If you are taking this medicine over a prolonged period, carry an identification card with your name and address, the type and dose of your medicine, and your doctor's name and address. This medicine may increase your risk of getting an infection. Tell your doctor or health health care social worker if you are around anyone with measles or chickenpox, or if you develop sores or blisters that do not heal properly. If you are going to have surgery, tell your doctor or health health care social worker that you have taken this medicine within the last twelve months. Ask your doctor or health health care social worker about your diet. You may need to lower the amount of salt you eat. This medicine may affect blood sugar levels. If you have diabetes, check with your doctor or health health care social worker before you change your diet or the dose of your diabetic medicine. You have been given the following additional information: Pharyngitis, Strep (Confirmed) Ibuprofen Oral tablet Penicillin V Potassium Oral tablet Prednisone Oral tablet (Electronically signed by Ranjith Toribio Dr. 08/06/2016 18:09)
--- NOTE | 2016-08-06 18:09 | ED MAR SUMMARY ---
..... Medication Administration Record [facility] [address] [place] [address] Patient: MENDEL OLEARY Visit ID: [id number] 40y, M Weight: 104.3 kg Height/Length: 66 in BMI: 37.1 ALLERGIES: No Known Drug Allergy Start 09:08/04/2016 Genet Serrano R.N. Medication Administered: IV NS (SALINE), Dose: IV Fluids over 1 hour(s), Rate: 1000 mL/hr, Dispensed: 1000 mL bag, Site: #1 right forearm. Medication Ordered: IV NS : initial bolus 1000 mL (1000 mL/hr), then none - for X1 (NOW). Given 09:08/04/2016 Genet Serrano R.N. Medication Administered: TORADOL [IVP], Dose: 30 mg IVP over 2 minute(s), Site: #1 right forearm. Medication Ordered: Toradol IV 30 mg (NOW). Given 09:08/04/2016 Genet Serrano R.N. Medication Administered: PENICILLIN V POTASSIUM [PO], Dose: 500 mg Capsules PO. Medication Ordered: Penicillin V Potassium PO 500 mg (NOW). Given 09:48 08/04/2016 Genet Serrano R.N. Medication Administered: PHENERGAN-CODEINE [PO] (PROMETHAZINE-CODEINE), Dose: 10 mL Oral Suspension PO. Medication Ordered: Phenergan-Codeine PO 10 mL (HIGH ALERT MEDICATION, NOW). Given 09:08/04/2016 Genet Serrano R.N. Medication Administered: PREDNISONE [PO], Dose: 60 mg Capsules PO. Medication Ordered: Prednisone PO 60 mg (NOW).
--- NOTE | 2016-08-06 18:09 | ED MED RECONCILIATION SUMMARY ---
Patient: MENDEL OLEARY JR Medication Reconciliation Report [facility] VisitID: [id number] [address] [place] [address] 40y, M Registration Date/Time: 08/04/2016 Weight: 104.3 kg Height/Length: 66 in. BMI: 37.1 ALLERGIES: No Known Drug Allergy The patient's Home Medications are listed below: NONE. The source(s) of the original Home Medication information: patient The following Medications were given to the patient in the Emergency Department: Toradol [IVP] IVP 30 mg, administered: 08/04/2016 9:19:00 AM IV NS IV Fluids bolus 0, then 1000 mL/hr, administered: 08/04/2016 9:19:00 AM Penicillin V Potassium [PO] PO 500 mg, administered: 08/04/2016 9:44:00 AM PHENERGAN-CODEINE [PO] PO 10 mL, administered: 08/04/2016 9:48:00 AM Prednisone [PO] PO 60 mg, administered: 08/04/2016 9:48:00 AM The following Medications were prescribed to the patient: Acetaminophen (available over the counter): take according to label instructions. -- Ranjith Toribio Dr. Motrin 600 mg tablets: take 1 tablet orally every 6 hours as needed for pain, stiffness, swelling or fever. Dispense thirty (30). No refill. Substitution is permissible. -- Ranjith Toribio Dr. Penicillin V 500 mg: take 1 tab orally every 12 hours for 10 days. Dispense twenty (20). No refills.(Disp 20 tabs) -- Ranjith Toribio Dr. Phenergan w/ Codeine 10mg / 6.25mg per 5 mL: take 1-2 teaspoons every 6 hours as needed for pain or cough. Dispense sixty (60) mL. No refill. Substitution is permissible. -- Ranjith Toribio Dr. Prednisone 50 mg: take 1 orally every day for 5 days. Dispense five (5). No refills. -- Ranjith Toribio Dr.
== END 2016-08-04 10:30 | disposition home or self-care (01) ==
LOC: ED SRH 08:21
DX: J02.0 Streptococcal pharyngitis (principal); D72.829 Elevated white blood cell count, unspecified; F17.200 Nicotine dependence, unspecified, uncomplicated
CPT/HCPCS: 90100; 90154; 95059

== ENCOUNTER 2016-08-12 01:35 | Observation (INO) | payer SELFPAY ==
[~2016-08-12] VITALS: Ht 170.2 cm; Wt 94.6 kg
--- NOTE | 2016-08-12 05:18 | DIAGNOSTIC IMAGING REPORT ---
PROCEDURE: XR CHEST 2 VIEW INDICATION: Wheezing TECHNIQUE: PA and lateral view. COMPARISON: Chest x-ray 08/04/2016 FINDINGS: Lungs are clear. Cardiovascular structures are normal. Bony thorax is unremarkable. No significant interval change. IMPRESSION: 1. Negative chest.
--- NOTE | 2016-08-12 05:43 | ED NURSING NOTES ---
Clinical Report - Nurses [facility] [address] [place] [address] 08/12/2016 1:36 Patient: MENDEL OLEARY JR TRIAGE Triage time 01:43 Aug 12 2016. Acuity: LEVEL 3. Chief Complaint: COUGH, RUNNY NOSE and SORE THROAT. KANDI COMA SCORE: [place] Coma Scale: 15- eyes open spontaneously (4); best verbal response- oriented x 4 (5); best motor response- obeys commands (6). --01:45 Genet Serrano R.N. 01:43 08/12/16. BP: 127/83. HR: 99. --01:45 Genet Serrano R.N. 01:45 08/12/16. RR: 20. O2 saturation: 96%. Temp: 98.4 F. Pain level now 10. --01:46 Genet Serrano R.N. Weight: 104.3 kg stated. Height/Length: 67 inches Per Patient. BMI: 36. --01:45 Genet Serrano R.N. Medications None. --01:43 Genet Serrano R.N. Allergies No Known Drug Allergy. --01:43 Genet Serrano R.N. History Arrived by private vehicle. Historian: patient. Onset. (since last week). He has had a nasal discharge, chest congestion, chills, fatigue and a headache. He has had difficulty breathing. Reports muscle aches. No photophobia or sinus pain. PAST MEDICAL HX: Immunizations: up-to-date. SOCIAL HX: Light tobacco smoker (cigarette)- less than 1/2 a pack per day. History of drug use: methamphetamines. No alcohol use. SELF HARM ASSESSMENT: A self harm assessment was performed. The patient answered "no" to the question "Have you recently felt down, depressed, or hopeless?" and "Do you have thoughts of harming or killing yourself?". FALL RISK ASSESSMENT: Fall risk assessment completed. No fall risk identified. NUTRITIONAL RISK ASSESSMENT: The nutritional risk assessment revealed no deficiencies. FUNCTIONAL ASSESSMENT: Functional assessment: no impairments noted. LEARNING NEEDS ASSESSMENT: The learning needs assessment revealed no barriers. ABUSE ASSESSMENT: Abuse assessment: (yes) The patient was asked "Do you feel safe in your home?". SKIN INTEGRITY ASSESSMENT: Skin integrity risk assessment completed. No skin integrity risk identified. --01:45 Genet Serrano R.N. PROBLEMS: Leukocytosis. Pharyngitis. Hypertension. Back Pain. Hernia. Immunizations. --01:44 Genet Serrano R.N. ADDITIONAL SURGERIES: Splenectomy. --01:44 Genet Serrano R.N. Interventions ID band on patient. --01:45 Genet Serrano R.N. PHYSICAL ASSESSMENT Ambulatory to room. GENERAL / NEURO / PSYCH: Alert. Oriented X 4. Appears anxious and in distress. HEENT: Pupils equal, round and reactive to light. Ears within normal limits. Nares within normal limits. Hoarse voice. Mucous membranes are pink. RESPIRATORY: Respirations not labored. ( exp wheezes). CVS: Normal sinus rhythm noted. Capillary refill less than 2 seconds. SKIN: Skin is warm and dry. Normal skin turgor. --01:47 Genet Serrano R.N. NURSING PROGRESS NOTES The plan of care for this patient has been created. Pulse oximeter and NIBP monitor placed on patient. Head of bed elevated (45). Reassurance given. Call light placed in reach. Side rails up x 1. Bed placed in lowest position. Brakes of bed on. --01:48 Genet Serrano R.N. 02:24 08/12/2016 Prednisone PO Tablets 60 mg given. Allergies verified and confirmed 5 rights. --02:24 Genet Serrano R.N. 03:33 08/12/2016 Duoneb (Ipratropium-Albuterol) Neb TX Nebulizer 1 unit dose given. Given by the respiratory therapist. Allergies verified and confirmed 5 rights. --04:33 Genet Serrano R.N. 04:07 08/12/2016 Albuterol Neb TX Nebulizer 5 mg given. Given by the respiratory therapist. Allergies verified and confirmed 5 rights. --04:32 Genet Serrano R.N. 04:42 08/12/2016 Site #1 started via IV in the right hand with an 20g angiocath, with aseptic technique and good blood return; one attempt. Blood drawn: rainbow set. Labeled in the presence of the patient and sent to the lab. Saline lock flushed with 10 mL saline. --04:47 Genet Serrano R.N. 04:42 08/12/2016 Magnesium Sulfate (Magnesium Sulfate in D5W) IVP 2 gm given over 15 minute(s) via site #1. Allergies verified and confirmed 5 rights. IV patency established. IV site checked: no pain, redness, or swelling. IV flushed thoroughly pre- and post-medication administration. --04:47 Genet Serrano R.N. 04:08/12/16. BP: 185/89. HR: 89. RR: 20. O2 saturation: 90% on room air. Additional comments: patient resting soundly . 03:08/12/16. BP: 152/90. HR: 87. RR: 20. O2 saturation: 92% on room air. 02:08/12/16. BP: 127/90. HR: 72. RR: 20. O2 saturation: 92% on room air. 01:08/12/16. RR: 20. O2 saturation: 96%. Temp: 98.4 F. Pain level now 3/10. --05:39 Genet Serrano R.N. 05:40 08/12/16. O2 saturation: 82%. --05:41 Genet Serrano R.N. ( Patient sleeping soundly +snoring sat's dropping to 81-84% on RA applied 2L O2 NC sat's up to 91 percent.). --05:41 Genet Serrano R.N. 05:51 08/12/2016 Started 500 mg of Azithromycin IVPB in bag #1 250 mL; at 255 mL/hr over 1 hour(s) via site #1 via IV pump. Allergies verified and confirmed 5 rights. IV patency established. IV site checked: no pain, redness, or swelling. IV flushed thoroughly pre- and post-medication administration. --05:56 Genet Serrano R.N. 05:56 08/12/2016 Albuterol Neb TX Nebulizer 3 unit dose given. Given by the respiratory therapist. Allergies verified and confirmed 5 rights. --05:56 Genet Serrano R.N. 06:04 08/12/2016 SOLU-MEDROL (MethylPREDNISolone Sodium Succ) IVP 60 mg given over 2 minute(s) via site #1. Allergies verified and confirmed 5 rights. IV patency established. IV site checked: no pain, redness, or swelling. IV flushed thoroughly pre- and post-medication administration. --06:04 Genet Serrano R.N. 06:12 08/12/2016 Azithromycin IVPB Discontinued: bag #1 infused. Total amount infused: 250 mL. IV patency established. IV site checked: no pain, redness, or swelling. IV flushed thoroughly. --06:17 Genet Serrano R.N. 06:40 08/12/16. ( Report given to Radha alvarez AC.). --07:01 Genet Serrano R.N. 06:47 08/12/2016 Site #[address] upon transfer; patent. Good blood return present. Converted to saline lock and flushed with 10 mL saline. --07:02 Genet Serrano R.N. DISPOSITION / DISCHARGE Departure time: 06:50 Aug 12 2016. Admitted to Acute Care. --07:00 Genet Serrano R.N. 06:58 08/12/16. BP: 131/73. HR: 91. RR: 18. O2 saturation: 93%. Temp: 98.9 F. Pain level now 0/10. --07:00 Genet Serrano R.N. Locked/Released at 08/12/2016 7:03 by Genet Serrano R.N.
--- NOTE | 2016-08-12 05:43 | ED ORDER SUMMARY ---
..... Patient: MENDEL OLEARY JR OrderSheet [facility] VisitID: [id number] [address] [place] [address] 40y, M Registration Date/Time: 08/12/2016 ORDER SHEET Weight: 104.3 kg (stated) Allergies: No Known Drug Allergy GENERAL ORDERS: Chest 2V Urgent (02:05 08/12/2016 Joe Alcala) (Ack 2:07 LMuller) (2:08 LWhalen R.N.) Sofa Back Upholsterer (Continuous) (Respiratory Distress) (02:05 08/12/2016 Joe Alcala) (2:08 LWhalen R.N.) Pulse oximeter (02:06 08/12/2016 Joe Alcala) (2:08 LWhalen R.N.) CBC w Diff Urgent (04:26 08/12/2016 Joe Alcala) (Ack 4:39 LMuller) (4:47 LWhalen R.N.) BMP Urgent (04:26 08/12/2016 Joe Alcala) (Ack 4:39 LMuller) (4:47 LWhalen R.N.) Oxygen (2 L/min) (NC) (05:38 08/12/2016 Joe Alcala) (5:41 LWhalen R.N.) Urine Drug Screen Urgent (05:43 08/12/2016 Joe Alcala) (Ack 5:46 LMuller) (7:02 LWhalen R.N.) MEDICATION ORDERS: DuoNeb Neb Tx 1 unit dose (NOW) (02:05 08/12/2016 Joe Alcala) (Ack 2:08 LWhalen R.N.) (4:33 LWhalen R.N.) Prednisone PO 60 mg (NOW) (02:16 08/12/2016 Joe Alcala) (2:24 LWhalen R.N.) Albuterol Neb Tx 5 mg (once now) (02:59 08/12/2016 Joe Alcala) (4:32 LWhalen R.N.) Albuterol Neb Tx 3 unit doses (NOW) (05:29 08/12/2016 Joe Alcala) (5:56 LWhalluzma R.N.) IV FLUIDS: Magnesium Sulfate IV 2 gm/50mL (once now over 15 - 20 minutes for wheezing) (04:26 08/12/2016 Joe Alcala) (4:47 LWhalen R.N.) Azithromycin IV 500 mg/250 mL (NOW) (05:32 08/12/2016 Joe Alcala) (5:56 LWhalluzma R.N.) Solu-MEDROL IV 60 mg (NOW) (05:42 08/12/2016 Joe Alcala) (6:04 LWhalen R.N.) ORDER SHEET NOTES: [Electronically signed by Genet Serrano R.N. (07:03 08/12/2016)] [Electronically signed by Ranjith Toribio Dr. (21:18 08/18/2016)] [Electronically locked/signed by Genet Serrano R.N. (07:03 08/12/2016)]
--- NOTE | 2016-08-12 05:43 | ED ORDER SUMMARY ---
..... Patient: MENDEL OLEARY JR OrderSheet [facility] VisitID: [id number] [address] [place] [address] 40y, M Registration Date/Time: 08/12/2016 ORDER SHEET Weight: 104.3 kg (stated) Allergies: No Known Drug Allergy GENERAL ORDERS: Chest 2V Urgent (02:05 08/12/2016 Joe Alcala) (Ack 2:07 LMuller) (2:08 LWhalen R.N.) Community Relations Rep (Continuous) (Respiratory Distress) (02:05 08/12/2016 Joe Alcala) (2:08 LWhalen R.N.) Pulse oximeter (02:06 08/12/2016 Joe Alcala) (2:08 LWhalen R.N.) CBC w Diff Urgent (04:26 08/12/2016 Joe Alcala) (Ack 4:39 LMuller) (4:47 LWhalen R.N.) BMP Urgent (04:26 08/12/2016 Joe Alcala) (Ack 4:39 LMuller) (4:47 LWhalen R.N.) Oxygen (2 L/min) (NC) (05:38 08/12/2016 Joe Alcala) (5:41 LWhalen R.N.) Urine Drug Screen Urgent (05:43 08/12/2016 oJe Alcala) (Ack 5:46 LMuller) (7:02 LWhalen R.N.) MEDICATION ORDERS: DuoNeb Neb Tx 1 unit dose (NOW) (02:05 08/12/2016 Joe Alcala) (Ack 2:08 LWhalen R.N.) (4:33 LWhalen R.N.) Prednisone PO 60 mg (NOW) (02:16 08/12/2016 Joe Alcala) (2:24 LWhalen R.N.) Albuterol Neb Tx 5 mg (once now) (02:59 08/12/2016 Joe Alcala) (4:32 LWhalen R.N.) Albuterol Neb Tx 3 unit doses (NOW) (05:29 08/12/2016 Joe Alcala) (5:56 LWhalluzma R.N.) IV FLUIDS: Magnesium Sulfate IV 2 gm/50mL (once now over 15 - 20 minutes for wheezing) (04:26 08/12/2016 Joe Alcala) (4:47 LWhalen R.N.) Azithromycin IV 500 mg/250 mL (NOW) (05:32 08/12/2016 Joe Alcala) (5:56 LWhalluzma R.N.) Solu-MEDROL IV 60 mg (NOW) (05:42 08/12/2016 Joe Alcala) (6:04 LWhalen R.N.) ORDER SHEET NOTES: [Electronically signed by Genet Serrano R.N. (07:03 08/12/2016)] [Electronically signed by Ranjith Toribio Dr. (21:18 08/18/2016)] [Electronically locked/signed by Genet Serrano R.N. (07:03 08/12/2016)]
--- NOTE | 2016-08-12 05:43 | ED CLINICAL REPORT ---
Clinical Report - Physicians/Mid Levels [facility] [address] [place] [address] 08/12/2016 1:36 Patient: MENDEL OLEARY JR Arrived- By private vehicle. Historian- patient. HISTORY OF PRESENT ILLNESS Chief Complaint: DYSPNEA and WHEEZING. This started past 2 days and is still present and worsening. It was abrupt in onset and has been constant but is not gone now. The dyspnea is described as severe. The patient has had a dry cough. No sputum production, orthopnea or chest pain or discomfort. See nurses notes for current asthma threapy. Asthma triggers: (no hx of asthma). (reports no family history of asthma. does not recall what he was doing before it happened.). Similar symptoms previously: None. Recent medical care: Not recently seen/assessed. REVIEW OF SYSTEMS No fever, chills, palpitations or skin rash. All systems otherwise negative, except as recorded above. PAST HISTORY See nurses notes. Medications: None. Allergies: No Known Drug Allergy. SOCIAL HISTORY Never smoker. No alcohol use or drug use. No recent travel. Is a local resident. ADDITIONAL NOTES The nursing notes have been reviewed. PHYSICAL EXAM Vital Signs: 08/12/2016 01:45 RR: 20. O2 saturation: 96%. Temp: 98.4 F. 08/12/2016 01:43 BP: 127/83. HR: 99. Blood pressure normal. Oxygen saturation normal. Appearance: Alert. No acute distress. Eyes: Pupils equal, round and reactive to light. Eyes normal inspection. ENT: Ears normal. Nose normal. Pharynx normal. Uvula midline. Neck: Normal inspection. Neck supple. CVS: Normal heart rate and rhythm. Heart sounds normal. Pulses normal. Respiratory: Mild respiratory distress with accessory muscle use. Expiratory moderate bilateral wheezes diffusely. No stridor, rales or rhonchi. Abdomen: Soft and nontender. No organomegaly. Skin: Skin warm and dry. Normal skin color. No rash. Normal skin turgor. Extremities: Extremities exhibit normal ROM. LABS, X-RAYS, AND EKG Chest X-ray: No acute disease. Normal lung markings present. No infiltrate. Views: PA and lateral. Technique: good. The X-rays were independently viewed by me. Laboratory Tests: CBC w Diff: (KIMANI: 08/12/2016 04:45) ( MsgRcvd 08/12/2016 05:07) Final results Test Result Flag Units (Reference) WHITE BLOOD COUNT 15.8 H K/uL (4.5-11.5) RED BLOOD COUNT 4.97 M/uL (4.50-5.90) HEMOGLOBIN 15.2 gm/dL (13.5-17.5) HEMATOCRIT 46.1 % (41.0-53.0) MEAN CELL VOLUME 93 fL (80-100) MEAN CORPUSCULAR HGB 31 pg (26-34) MEAN CORPUSCULAR HGB CONC 33 g/dL (31-37) RED CELL DISTRIBUTION WIDTH 13.8 % (11.6-14.8) PLATELET COUNT 301 K/uL (150-400) NEUTROPHIL % 76.3 H % (50-75) LYMPH % 17.6 L % (25-40) MONO % 3.6 % (3-14) EOSINOPHIL % 2.5 % (0-4) BASOPHIL % 0 % (0-2) BMP: (KIMANI: 08/12/2016 04:45) ( MsgRcvd 08/12/2016 05:13) Final results Test Result Flag Units (Reference) GLUCOSE 171 H mg/dL (70-110) BUN 15 mg/dL (7-18) CREATININE 0.9 mg/dL (0.6-1.3) Estimated GFR >60 mL/min Estimated GFR- >60 mL/min Note: Persistent reduction over 3 months in eGFR<60 mL/min/1.73 m2 defines CKD. Patients with eGFR values>=60 mL/min/1.73 m2 may also have CKD if evidence ofpersistent proteinuria. Additional information may be foundat www.kidney.org. SODIUM 139 mmol/L (136-145) POTASSIUM 4.2 mmol/L (3.5-5.1) CHLORIDE 102 mmol/L (98-107) CARBON DIOXIDE 29 mmol/L (21-32) CALCIUM 8.7 mg/dL (8.5-10.1) . PROGRESS AND PROCEDURES Course of Care: The patient is a pleasant 40 yo male with hx of substance abuse presenting for wheezing. patient is a first time wheezer. Reports no incident that caused the wheezing. He does not full disclose to me substance abuse during the onset of wheezing however did warn him of thehigh likelihood of bronchospasm with illicit substances. Differental includes reactive airway disease, pneumonia, and substance induced bronchospasm. Patient agreeable to treatment and plan. Patient reevaluated. Wheezing louder with better air movement. Steroids given. Patient will require several more treatments. Patient was reevaluated and still with significant wheezing. Patient not a good outpatient candidate. Mag given. Spoke to hospitalist who will accept the patient. Patient agreeable to treatment and plan. Discussed with patient his workup, diagnosis, and plan of care. All questions answered. Patient admitted. Prior to departure from the ED, patient improved but still requires admission. Critical care performed (45 minutes). Time is exclusive of separately billable procedures. Time includes: direct patient care, patient reassessment, coordination of patient care, interpretation of data (laboratory data and chest xrays), review of patient's medical records, medical consultation and documentation of patient care. Disposition: Discharged. Condition: good. (Electronically signed by Ranjith Toribio Dr. 08/18/2016 21:18)
[2016-08-12 06:56] VITALS: BP 136/85
--- NOTE | 2016-08-12 08:26 | Progress Note ---
Subjective General Admission History and Physical Examination-24 hour observation note Patient Name: Doug Hodgson Admission Date: August 12, 2016 Primary Care Provider: Crow Carmona M.D. Attending Physician: León Angel M.D. Admitting Physician: León Angel M.D. SUBJECTIVE Historian: Patient Reliability: Fair Chief Complaint: Shortness of breath History of Present Illness: The patient is a 40-year-old white male with a significant past medical history of illicit drug use-methamphetamine/heroin who presented to [facility] emergency department on the day of admission secondary to complaints of shortness of breath. GI evaluation was consistent with asthma/reactive airway disease. Secondary to the above, the patient was admitted by Michael Perdue M.D. for further evaluation and treatment. The history of present was began 2 days prior to admission when the patient experienced increasing shortness of breath and wheezing. This apparently worsened over the 2 days prior to admission. This apparently worsened over to 2 days prior to admission. It was associated with dry cough. There is no associated fever or chills. No previous history of asthma or reactive airway disease. Secondary to increasing shortness of breath the patient presented to [facility] emergency department for further evaluation and treatment. [facility] ER evaluation showed the patient to have vital signs of blood pressure 127/83 mmHg, pulse 99, respirations 20, O2 sat 96%. The patient was noted to develop hypoxemia on room air during his ER visit. Physical examination showed bilateral expiratory wheezes no rales noted. The patient was treated with standard therapy but had persistent bronchospasm. Secondary to the above the patient was admitted for further evaluation and treatment with a diagnosis of reactive airway disease/status asthmaticus for further evaluation and treatment. PAST MEDICAL HISTORY Illnesses: 1. Illicit drug use-methamphetamine/heroin Allergies: 1. None Medications: 1. None Surgery: 1. None Injuries: 1. No significant Hospitalizations: 1. None FAMILY HISTORY Noncontributory SOCIAL HISTORY 1. Marital Status: Single 2. [employer]: [employer] HABITS 1. Tobacco: None 2. Drugs: Methamphetamine/heroin 3. Alcohol: None HEALTH SUPERVISION Item/Test 1. Not reviewed IMMUNIZATIONS: 1. Pneumococcal: No previous 2. Influenza: Unknown 3. Tetanus: Unknown REVIEW OF SYSTEMS Remarkable for those things stated in the history of present illness and past medical history. Seventeen point review of system completed with the following notable findings: Otherwise noncontributory. Physical Exam Vital Signs / I&Os Vital Signs Date Time Temp Pulse Resp B/P Pulse O2 O2 Flow FiO2 Ox Delivery Rate 08/12 0656 98.1 95 18 136/85 92 Nasal 2.0 Cannula 08/12 0557 2.0 General Appearance Alert, Oriented X3, Cooperative, No acute distress HEENT Atraumatic, PERRLA, EOMI Lungs Clear to auscultation, Normal air movement Neck Supple, No JVD, No masses Cardiovascular Regular rate and rhythm, Normal S1 and S2, No murmurs, gallops, rubs Abdomen Normal bowel sounds, Soft, No tenderness Extremities No cyanosis, No clubbing, No edema Neurological Cranial nerves intact, Strength 5/5 x4 ext's, No lateralizing signs Psych/Mental Status Mental status normal, Mood normal LAB Results Laboratory Tests 08/12 08/12 08/12 0445 0445 0445 Chemistry Plasma Sodium (136 - 145 mmol/L) 139 TNP Plasma Potassium (3.5 - 5.1 mmol/L) 4.2 TNP Plasma Chloride (98 - 107 mmol/L) 102 TNP CO2 (Enzymatic) (21 - 32 mmol/L) 29 TNP BUN (7 - 18 mg/dL) 15 TNP Creatinine (0.6 - 1.3 mg/dL) 0.9 TNP Est GFR ( Amer) (mL/min) >60 TNP Est GFR (Non-Af Amer) (mL/min) >60 TNP Glucose (70 - 110 mg/dL) 171 TNP Hemoglobin A1c % (4.5 - 6.2 %) 6.1 Plasma Calcium (8.5 - 10.1 mg/dL) 8.7 TNP Plasma Magnesium (1.8 - 2.4 mg/dL) 2.0 Total Bilirubin (0.0 - 1.0 mg/dL) 0.4 AST (15 - 37 U/L) 27 ALT (12 - 78 U/L) 31 Alkaline Phosphatase (46 - 116 U/L) 107 Total Protein (6.4 - 8.2 g/dL) 8.1 Albumin (3.3 - 5.0 g/dL) 3.5 Hematology WBC (4.5 - 11.5 K/uL) 15.8 RBC (4.50 - 5.90 M/uL) 4.97 Hgb (13.5 - 17.5 gm/dL) 15.2 Hct (41.0 - 53.0 %) 46.1 MCV (80 - 100 fL) 93 MCH (26 - 34 pg) 31 RDW (11.6 - 14.8 %) 13.8 Neut % (Auto) (50 - 75 %) 76.3 Lymph % (Auto) (25 - 40 %) 17.6 [place] % (Auto) (3 - 14 %) 3.6 Eos % (Auto) (0 - 4 %) 2.5 Baso % (Auto) (0 - 2 %) 0 Plt Count, EDTA (150 - 400 K/uL) 301 PUBS MCHC (31 - 37 g/dL) 33 Imaging Chest x-ray IMPRESSION: 1. Negative chest. Dictated by: CHAZ ARCINIEGA MD D: DALE;08/12/16 0518 Assessment and Plan Problem List 1. Illicit drug use Status Chronic Onset Date Unknown Plan -patient with history of illicit drug use-methamphetamine/heroin -Encouraged post discharge absence from illicit drugs -Recommended enrollment in drug treatment program 2. Status asthmaticus Plan -The patient presents with findings of status asthmaticus/reactive airway disease -DuoNeb, albuterol, Solu-Medrol, and supplemental oxygen. -Monitor -Status improved since admission, patient states he is exhibiting no shortness of breath or wheezing at this time -Paln discharge today. OP follow up with PCP Current status: Fair, unstable Anticipated discharge date: Discharge today Anticipated discharge placement: Home Patient care time: Time spent in chart review, patient interview, physical exam, CPOE, and care documentation: 70 minutes Visit to patient today: 2 Complexity of care: High Patient symptoms resolved. No hypoxemia with ambulation. OP followup as above. See DC instructions. E&M Codes Admit & Discharge: Comp/High/46835 Patient care time: Time spent in chart review, patient interview, physical exam, CPOE, and care documentation: 70 minutes Visit to patient today: 2 Complexity of care: High E&M Codes Admit & Discharge: Comp/High/88574 Visit to patient today: 2 Complexity of care: High E&M Codes Admit & Discharge: Comp/High/10011
--- NOTE | 2016-08-12 08:26 | Progress Note ---
Subjective General Admission History and Physical Examination-24 hour observation note Patient Name: Doug Hodgson Admission Date: August 12, 2016 Primary Care Provider: Crow Carmona M.D. Attending Physician: León Angel M.D. Admitting Physician: León Angel M.D. SUBJECTIVE Historian: Patient Reliability: Fair Chief Complaint: Shortness of breath History of Present Illness: The patient is a 40-year-old white male with a significant past medical history of illicit drug use-methamphetamine/heroin who presented to [facility] emergency department on the day of admission secondary to complaints of shortness of breath. GI evaluation was consistent with asthma/reactive airway disease. Secondary to the above, the patient was admitted by Michael Perdue M.D. for further evaluation and treatment. The history of present was began 2 days prior to admission when the patient experienced increasing shortness of breath and wheezing. This apparently worsened over the 2 days prior to admission. This apparently worsened over to 2 days prior to admission. It was associated with dry cough. There is no associated fever or chills. No previous history of asthma or reactive airway disease. Secondary to increasing shortness of breath the patient presented to [facility] emergency department for further evaluation and treatment. [facility] ER evaluation showed the patient to have vital signs of blood pressure 127/83 mmHg, pulse 99, respirations 20, O2 sat 96%. The patient was noted to develop hypoxemia on room air during his ER visit. Physical examination showed bilateral expiratory wheezes no rales noted. The patient was treated with standard therapy but had persistent bronchospasm. Secondary to the above the patient was admitted for further evaluation and treatment with a diagnosis of reactive airway disease/status asthmaticus for further evaluation and treatment. PAST MEDICAL HISTORY Illnesses: 1. Illicit drug use-methamphetamine/heroin Allergies: 1. None Medications: 1. None Surgery: 1. None Injuries: 1. No significant Hospitalizations: 1. None FAMILY HISTORY Noncontributory SOCIAL HISTORY 1. Marital Status: Single 2. Confucianism: Gnosticism HABITS 1. Tobacco: None 2. Drugs: Methamphetamine/heroin 3. Alcohol: None HEALTH SUPERVISION Item/Test 1. Not reviewed IMMUNIZATIONS: 1. Pneumococcal: No previous 2. Influenza: Unknown 3. Tetanus: Unknown REVIEW OF SYSTEMS Remarkable for those things stated in the history of present illness and past medical history. Seventeen point review of system completed with the following notable findings: Otherwise noncontributory. Physical Exam Vital Signs / I&Os Vital Signs Date Time Temp Pulse Resp B/P Pulse O2 O2 Flow FiO2 Ox Delivery Rate 08/12 0656 98.1 95 18 136/85 92 Nasal 2.0 Cannula 08/12 0557 2.0 General Appearance Alert, Oriented X3, Cooperative, No acute distress HEENT Atraumatic, PERRLA, EOMI Lungs Clear to auscultation, Normal air movement Neck Supple, No JVD, No masses Cardiovascular Regular rate and rhythm, Normal S1 and S2, No murmurs, gallops, rubs Abdomen Normal bowel sounds, Soft, No tenderness Extremities No cyanosis, No clubbing, No edema Neurological Cranial nerves intact, Strength 5/5 x4 ext's, No lateralizing signs Psych/Mental Status Mental status normal, Mood normal LAB Results Laboratory Tests 08/12 08/12 08/12 0445 0445 0445 Chemistry Plasma Sodium (136 - 145 mmol/L) 139 TNP Plasma Potassium (3.5 - 5.1 mmol/L) 4.2 TNP Plasma Chloride (98 - 107 mmol/L) 102 TNP CO2 (Enzymatic) (21 - 32 mmol/L) 29 TNP BUN (7 - 18 mg/dL) 15 TNP Creatinine (0.6 - 1.3 mg/dL) 0.9 TNP Est GFR ( Amer) (mL/min) >60 TNP Est GFR (Non-Af Amer) (mL/min) >60 TNP Glucose (70 - 110 mg/dL) 171 TNP Hemoglobin A1c % (4.5 - 6.2 %) 6.1 Plasma Calcium (8.5 - 10.1 mg/dL) 8.7 TNP Plasma Magnesium (1.8 - 2.4 mg/dL) 2.0 Total Bilirubin (0.0 - 1.0 mg/dL) 0.4 AST (15 - 37 U/L) 27 ALT (12 - 78 U/L) 31 Alkaline Phosphatase (46 - 116 U/L) 107 Total Protein (6.4 - 8.2 g/dL) 8.1 Albumin (3.3 - 5.0 g/dL) 3.5 Hematology WBC (4.5 - 11.5 K/uL) 15.8 RBC (4.50 - 5.90 M/uL) 4.97 Hgb (13.5 - 17.5 gm/dL) 15.2 Hct (41.0 - 53.0 %) 46.1 MCV (80 - 100 fL) 93 MCH (26 - 34 pg) 31 RDW (11.6 - 14.8 %) 13.8 Neut % (Auto) (50 - 75 %) 76.3 Lymph % (Auto) (25 - 40 %) 17.6 Harlan % (Auto) (3 - 14 %) 3.6 Eos % (Auto) (0 - 4 %) 2.5 Baso % (Auto) (0 - 2 %) 0 Plt Count, EDTA (150 - 400 K/uL) 301 PUBS MCHC (31 - 37 g/dL) 33 Imaging Chest x-ray IMPRESSION: 1. Negative chest. Dictated by: CHAZ ARCINIEGA MD D: DALE;08/12/16 0518 Assessment and Plan Problem List 1. Illicit drug use Status Chronic Onset Date Unknown Plan -patient with history of illicit drug use-methamphetamine/heroin -Encouraged post discharge absence from illicit drugs -Recommended enrollment in drug treatment program 2. Status asthmaticus Plan -The patient presents with findings of status asthmaticus/reactive airway disease -DuoNeb, albuterol, Solu-Medrol, and supplemental oxygen. -Monitor -Status improved since admission, patient states he is exhibiting no shortness of breath or wheezing at this time -Paln discharge today. OP follow up with PCP Current status: Fair, unstable Anticipated discharge date: Discharge today Anticipated discharge placement: Home Patient care time: Time spent in chart review, patient interview, physical exam, CPOE, and care documentation: 70 minutes Visit to patient today: 2 Complexity of care: High Patient symptoms resolved. No hypoxemia with ambulation. OP followup as above. See DC instructions. E&M Codes Admit & Discharge: Comp/High/66388 Patient care time: Time spent in chart review, patient interview, physical exam, CPOE, and care documentation: 70 minutes Visit to patient today: 2 Complexity of care: High E&M Codes Admit & Discharge: Comp/High/81815 Visit to patient today: 2 Complexity of care: High E&M Codes Admit & Discharge: Comp/High/19204
[2016-08-12 10:15] VITALS: BP 123/74
[2016-08-12] MEDS ORDERED: PREDNISONE20 MG PO (13:27)
[2016-08-12] MEDS ORDERED: COMBIVENT RESPIMAT IN (13:27)
--- NOTE | 2016-08-12 13:28 | Provider's Discharge Care Plan ---
Problem, Goal, Plan Problem List 1. Reactive airway disease Goals: Improve disease control, Prevent disease progress Instructions: Follow up as directed, Take meds as directed
--- NOTE | 2016-08-12 13:28 | Provider's Discharge Care Plan ---
Problem, Goal, Plan Problem List 1. Reactive airway disease Goals: Improve disease control, Prevent disease progress Instructions: Follow up as directed, Take meds as directed
--- NOTE | 2016-08-18 21:18 | ED MED RECONCILIATION SUMMARY ---
Patient: SAMINA OLEARYLINDSAY Newton JR Medication Reconciliation Report [facility] VisitID: [id number] [address] [place] [address] 40y, M Registration Date/Time: 08/12/2016 Weight: 104.3 kg Height/Length: 67 in. BMI: 36.0 ALLERGIES: No Known Drug Allergy The patient's Home Medications are listed below: NONE. The source(s) of the original Home Medication information: Not obtained. The following Medications were given to the patient in the Emergency Department: Prednisone [PO] PO 60 mg, administered: 08/12/2016 2:24:00 AM Albuterol [Neb Tx] Neb TX 5 mg, administered: 08/12/2016 4:07:00 AM Duoneb [Neb Tx] Neb TX 1 unit dose, administered: 08/12/2016 3:33:00 AM Magnesium Sulfate [IVP] IVP 2 gm, administered: 08/12/2016 4:42:00 AM Azithromycin [IVPB] IVPB bolus 0, then 500 mg 255 mL/hr, administered: 08/12/2016 5:51:00 AM Albuterol [Neb Tx] Neb TX 3 unit dose, administered: 08/12/2016 5:56:00 AM SOLU-MEDROL [IVP] IVP 60 mg, administered: 08/12/2016 6:04:00 AM The following Medications were prescribed to the patient: None.
--- NOTE | 2016-08-18 21:18 | ED MED RECONCILIATION SUMMARY ---
Patient: SAMINA OLEARYLINDSAY Newton JR Medication Reconciliation Report [facility] VisitID: [id number] [address] [place] [address] 40y, M Registration Date/Time: 08/12/2016 Weight: 104.3 kg Height/Length: 67 in. BMI: 36.0 ALLERGIES: No Known Drug Allergy The patient's Home Medications are listed below: NONE. The source(s) of the original Home Medication information: Not obtained. The following Medications were given to the patient in the Emergency Department: Prednisone [PO] PO 60 mg, administered: 08/12/2016 2:24:00 AM Albuterol [Neb Tx] Neb TX 5 mg, administered: 08/12/2016 4:07:00 AM Duoneb [Neb Tx] Neb TX 1 unit dose, administered: 08/12/2016 3:33:00 AM Magnesium Sulfate [IVP] IVP 2 gm, administered: 08/12/2016 4:42:00 AM Azithromycin [IVPB] IVPB bolus 0, then 500 mg 255 mL/hr, administered: 08/12/2016 5:51:00 AM Albuterol [Neb Tx] Neb TX 3 unit dose, administered: 08/12/2016 5:56:00 AM SOLU-MEDROL [IVP] IVP 60 mg, administered: 08/12/2016 6:04:00 AM The following Medications were prescribed to the patient: None.
--- NOTE | 2016-08-18 21:18 | ED MAR SUMMARY ---
..... Medication Administration Record [facility] [address] [place] [address] Patient: MENDEL OLEARY Visit ID: [id number] 40y, M Weight: 104.3 kg Height/Length: 67 in BMI: 36 ALLERGIES: No Known Drug Allergy Given 02:24 08/12/2016 Genet Serrano R.N. Medication Administered: PREDNISONE [PO], Dose: 60 mg Tablets PO. Medication Ordered: Prednisone PO 60 mg (NOW). Given 03:33 08/12/2016 Genet Serrano R.N. Medication Administered: DUONEB [NEB TX] (IPRATROPIUM-ALBUTEROL), Dose: 1 unit dose Nebulizer Neb TX. Medication Ordered: DuoNeb Neb Tx 1 unit dose (NOW). Given 04:07 08/12/2016 Genet Serrano R.N. Medication Administered: ALBUTEROL [NEB TX], Dose: 5 mg Nebulizer Neb TX. Medication Ordered: Albuterol Neb Tx 5 mg (once now). Given 04:42 08/12/2016 Genet Serrano R.N. Medication Administered: MAGNESIUM SULFATE [IVP] (MAGNESIUM SULFATE IN D5W), Dose: 2 gm IVP over 15 minute(s), Site: #1 right hand. Medication Ordered: Magnesium Sulfate IV 2 gm/50mL (once now over 15 - 20 minutes for wheezing). Start 05:51 08/12/2016 Genet Serrano R.N., Stop 06:12 08/12/2016 Genet Serrano R.N. Medication Administered: AZITHROMYCIN [IVPB], Dose: 500 mg IVPB over 1 hour(s), Rate: 255 mL/hr, Dispensed: 250 mL bag, Site: #1 right hand. Medication Ordered: Azithromycin IV 500 mg/250 mL (NOW). Given 05:56 08/12/2016 Genet Serrano R.N. Medication Administered: ALBUTEROL [NEB TX], Dose: 3 unit dose Nebulizer Neb TX. Medication Ordered: Albuterol Neb Tx 3 unit doses (NOW). Given 06:04 08/12/2016 Zach, Genet, R.N. Medication Administered: SOLU-MEDROL [IVP] (METHYLPREDNISOLONE SODIUM SUCC), Dose: 60 mg IVP over 2 minute(s), Site: #1 right hand. Medication Ordered: Solu-MEDROL IV 60 mg (NOW).
--- NOTE | 2016-08-18 21:18 | ED MAR SUMMARY ---
..... Medication Administration Record [facility] [address] [place] [address] Patient: MENDEL OLEARY Visit ID: [id number] 40y, M Weight: 104.3 kg Height/Length: 67 in BMI: 36 ALLERGIES: No Known Drug Allergy Given 02:24 08/12/2016 Genet Serrano R.N. Medication Administered: PREDNISONE [PO], Dose: 60 mg Tablets PO. Medication Ordered: Prednisone PO 60 mg (NOW). Given 03:33 08/12/2016 Genet Serrano R.N. Medication Administered: DUONEB [NEB TX] (IPRATROPIUM-ALBUTEROL), Dose: 1 unit dose Nebulizer Neb TX. Medication Ordered: DuoNeb Neb Tx 1 unit dose (NOW). Given 04:07 08/12/2016 Genet Serrano R.N. Medication Administered: ALBUTEROL [NEB TX], Dose: 5 mg Nebulizer Neb TX. Medication Ordered: Albuterol Neb Tx 5 mg (once now). Given 04:42 08/12/2016 Genet Serrano R.N. Medication Administered: MAGNESIUM SULFATE [IVP] (MAGNESIUM SULFATE IN D5W), Dose: 2 gm IVP over 15 minute(s), Site: #1 right hand. Medication Ordered: Magnesium Sulfate IV 2 gm/50mL (once now over 15 - 20 minutes for wheezing). Start 05:51 08/12/2016 Genet Serrano R.N., Stop 06:12 08/12/2016 Genet Serrano R.N. Medication Administered: AZITHROMYCIN [IVPB], Dose: 500 mg IVPB over 1 hour(s), Rate: 255 mL/hr, Dispensed: 250 mL bag, Site: #1 right hand. Medication Ordered: Azithromycin IV 500 mg/250 mL (NOW). Given 05:56 08/12/2016 Genet Serrano R.N. Medication Administered: ALBUTEROL [NEB TX], Dose: 3 unit dose Nebulizer Neb TX. Medication Ordered: Albuterol Neb Tx 3 unit doses (NOW). Given 06:04 08/12/2016 Zach, Genet, R.N. Medication Administered: SOLU-MEDROL [IVP] (METHYLPREDNISOLONE SODIUM SUCC), Dose: 60 mg IVP over 2 minute(s), Site: #1 right hand. Medication Ordered: Solu-MEDROL IV 60 mg (NOW).
== END 2016-08-12 14:10 | disposition home or self-care (01) ==
LOC: ED SRH 01:35 → TRANS SRH 05:48 → ACUTE2 SRH 05:48
PROVIDERS: ADMIT Family Medicine
DX: J45.902 Unspecified asthma with status asthmaticus (principal); Z72.0 Tobacco use; F15.10 Other stimulant abuse, uncomplicated; F11.10 Opioid abuse, uncomplicated
CPT/HCPCS: 29230; 29242; 90047; 90100; 91286; 92720; 92760; 92761; 92762; 92763; 92764; 92765; 92766; 92767; 95059

== ENCOUNTER 2016-09-09 18:30 | Emergency (ER) | payer SELFPAY ==
[~2016-09-09 18:30] MED LIST: COMBIVENT RESPIMAT IN; PREDNISONE20 MG PO
--- NOTE | 2016-09-09 19:55 | DIAGNOSTIC IMAGING REPORT ---
PROCEDURE: XR CHEST 2 VIEW INDICATION: SHORTNESS OF BREATH TECHNIQUE: PA and lateral views. COMPARISON: Compared to chest x-ray and 08/12/2016 and 08/04/2016. FINDINGS: Lungs are clear. Heart and mediastinum are normal. Thorax is normal. IMPRESSION: 1. Negative chest.
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
--- NOTE | 2016-09-09 21:18 | ED ORDER SUMMARY ---
..... Patient: MENDEL OLEARY JR OrderSheet [facility] VisitID: [id number] [address] [place] [address] 40y, M Registration Date/Time: 09/09/2016 ORDER SHEET Weight: 104.3 kg (stated) Allergies: No Known Drug Allergy GENERAL ORDERS: Chest 2V Urgent (18:53 09/09/2016 Jose Alcala) (Ack 18:54 LNations ER Tech1) (20:07 [facility]) MEDICATION ORDERS: DuoNeb Neb Tx 1 unit dose (NOW) (18:37 09/09/2016 Jose Alcala) (18:54 Jayme R.N.) Prednisone PO 40 mg (NOW) (18:38 09/09/2016 Jose Alcala) (18:53 Jayme R.N.) Augmentin PO 875 mg (NOW) (19:16 09/09/2016 Jose Alcala) (19:27 EInderbitzen R.N.) Albuterol Neb Tx 10 mg continuous (NOW) (19:21 09/09/2016 Jose Alcala) (19:29 EInderbitzen R.N.) IV FLUIDS: ORDER SHEET NOTES: [Electronically signed by Rebecca Perry R.N. (21:31 09/09/2016)] [Electronically signed by Jacinto Ness Dr. (22:40 09/09/2016)] [Electronically locked/signed by Rebecca Perry R.N. (21:31 09/09/2016)]
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
--- NOTE | 2016-09-09 21:18 | ED ORDER SUMMARY ---
..... Patient: MENDEL OLEARY JR OrderSheet [facility] VisitID: [id number] [address] [place] [address] 40y, M Registration Date/Time: 09/09/2016 ORDER SHEET Weight: 104.3 kg (stated) Allergies: No Known Drug Allergy GENERAL ORDERS: Chest 2V Urgent (18:53 09/09/2016 Jose Alcala) (Ack 18:54 LNations ER Tech1) (20:07 [facility]) MEDICATION ORDERS: DuoNeb Neb Tx 1 unit dose (NOW) (18:37 09/09/2016 Jose Alcala) (18:54 Jayme R.N.) Prednisone PO 40 mg (NOW) (18:38 09/09/2016 Jose Alcala) (18:53 Jayme R.N.) Augmentin PO 875 mg (NOW) (19:16 09/09/2016 Jose Alcala) (19:27 EInderbitzen R.N.) Albuterol Neb Tx 10 mg continuous (NOW) (19:21 09/09/2016 Jose Alcala) (19:29 EInderbitzen R.N.) IV FLUIDS: ORDER SHEET NOTES: [Electronically signed by Rebecca Perry R.N. (21:31 09/09/2016)] [Electronically signed by Jacinto Ness Dr. (22:40 09/09/2016)] [Electronically locked/signed by Rebecca Perry R.N. (21:31 09/09/2016)]
--- NOTE | 2016-09-09 22:40 | ED MED RECONCILIATION SUMMARY ---
Patient: MENDEL OLEARY JR Medication Reconciliation Report [facility] VisitID: [id number] [address] [place] [address] 40y, M Registration Date/Time: 09/09/2016 Weight: 104.3 kg Height/Length: 67 in. BMI: 36.0 ALLERGIES: No Known Drug Allergy The patient's Home Medications are listed below: CONTINUE TAKING THE FOLLOWING MEDICATIONS: Albuterol Sulfate HFA Inhalation The source(s) of the original Home Medication information: Not obtained. The following Medications were given to the patient in the Emergency Department: Prednisone [PO] PO 40 mg, administered: 09/09/2016 6:43:00 PM Duoneb [Neb Tx] Neb TX 1 unit dose, administered: 09/09/2016 6:44:00 PM Augmentin [PO] PO 875 mg, administered: 09/09/2016 7:27:00 PM ALBUTEROL NEB W ATROVENT Neb TX 10 mg, administered: 09/09/2016 7:29:00 PM The following Medications were prescribed to the patient: Augmentin 875 mg: take 1 tablet orally every 12 hours for 7 days. No refill. Substitution is permissible.(Start on 09/10/16) -- Jacinto Ness Dr. Prednisone 20 mg: take 2 orally every day for 4 days. Dispense sufficient quantity. No refills.(Start on 09/10/16) -- Jacinto Ness Dr.
--- NOTE | 2016-09-09 22:40 | ED DISCHARGE INSTRUCTIONS ---
Patient: MENDEL OLEARY JR General Instructions [facility] VisitID: [id number] [place] [address] 40y, M Registration Date/Time: 09/09/2016 INSTRUCTIONS Do not smoke. Seek medical help to quit smoking. Your Current Medications: CONTINUE TAKING THE FOLLOWING MEDICATIONS: Albuterol Sulfate HFA Inhalation. Prescription Medications: Augmentin 875 mg: take 1 tablet orally every 12 hours for 7 days. No refill. Substitution is permissible. (Start on 09/10/16) Prednisone 20 mg: take 2 orally every day for 4 days. Dispense sufficient quantity. No refills. (Start on 09/10/16) Follow-up: Follow up with your doctor in about two days. Call for an appointment. Screening today revealed the patient's blood pressure to be in the pre-hypertensive range. The patient should follow up with a primary care provider for blood pressure management. ADDITIONAL INFORMATION How To Quit Smoking Smoking is one of the hardest habits to break. About half of all those who have ever smoked have been able to quit, and most of those (about 70%) who still smoke want to quit. Here are some of the best ways to stop smoking. Keep Trying: It takes most smokers about 8 tries before they are finally able to fully quit. So, the more often you try and fail, the better your chance of quitting the next time! So, don't give up! Go Cold Eclectic: Most ex-smokers quit cold turkey. Trying to cut back gradually doesn't seem to work as well, perhaps because it continues the smoking habit. Also, it is possible to fool yourself by inhaling more while smoking fewer cigarettes. This results in the same amount of nicotine in your body! Get Support: Support programs can make an important difference, especially for the heavy smoker. These groups offer lectures, methods to change your behavior and peer support. Call the free national Quitline for more information. 308-BRHT-YLI (579-009-0019). Low-cost or free programs are offered by many hospitals, local chapters of the [employer] (915-551-2926) and the [employer] (660-436-6272). Support at home is important too. Non-smokers can help by offering praise and encouragement. If the smoker fails to quit, encourage them to try again! Algo-Tlf-Pfzzrul Medicines: For those who can't quit on their own, Nicotine Replacement Therapy (NRT) may make quitting much easier. Certain aids such as the nicotine patch, gum and lozenge are available without a prescription. However, it is best to use these under the guidance of your doctor. The skin patch provides a steady supply of nicotine to the body. Nicotine gum and lozenge gives temporary bursts of low levels of nicotine. Both methods take the edge off the craving for cigarettes. WARNING: If you feel symptoms of nicotine overdose, such as nausea, vomiting, dizziness, weakness, or fast heartbeat, stop using these and see your doctor. Prescription Medicines: After evaluating your smoking patterns and prior attempts at quitting, your doctor may offer a prescription medicine such as bupropion (Zyban, Wellbutrin), varenicline (Chantix, Champix), a niocotine inhaler or nasal spray. Each has its unique advantage and side effects which your doctor can review with you. Health Benefits Of Quitting: The benefits of quitting start right away and keep improving the longer you go without smokin minutes: blood pressure and pulse return to normal 8 hours: oxygen levels return to normal 2 days: ability to smell and taste begins to improve as damaged nerves start to regrow 2-3 weeks: circulation and lung function improves 1-9 months: decreased cough, congestion and shortness of breath; less tired 1 year: risk of heart attack decreases by half 5 years: risk of lung cancer decreases by half; risk of stroke becomes the same as a non-smoker For information about how to quit smoking, visit the following links: National Cancer [place] , Clearing the Air, Quit Smoking Today - an online booklet. http://www.smokefree.gov/pubs/clearing_the_air.pdf Smokefree.gov http://smokefree.gov/ QuitNet http://www.quitnet.com/ Amoxicillin Trihydrate, Clavulanate Potassium Oral tablet What is this medicine? AMOXICILLIN; CLAVULANIC ACID (a mox i MARY in; CHERYLE smith ic id) is a penicillin antibiotic. It is used to treat certain kinds of bacterial infections. It will not work for colds, flu, or other viral infections. How should I use this medicine? Take this medicine by mouth with a full glass of water. Follow the directions on the prescription label. Take at the start of a meal. Do not crush or chew. If the tablet has a score line, you may cut it in half at the score line for easier swallowing. Take your medicine at regular intervals. Do not take your medicine more often than directed. Take all of your medicine as directed even if you think you are better. Do not skip doses or stop your medicine early. Talk to your supervisor television chassis repair regarding the use of this medicine in children. Special care may be needed. What side effects may I notice from receiving this medicine? Side effects that you should report to your doctor or health gericare aide teacher as soon as possible: allergic reactions like skin rash, itching or hives, swelling of the face, lips, or tongue breathing problems dark urine fever or chills, sore throat redness, blistering, peeling or loosening of the skin, including inside the mouth seizures trouble passing urine or change in the amount of urine unusual bleeding, bruising unusually weak or tired white patches or sores in the mouth or throat Side effects that usually do not require medical attention (report to your doctor or health gericare aide teacher if they continue or are bothersome): diarrhea dizziness headache nausea, vomiting stomach upset vaginal or anal irritation What may interact with this medicine? allopurinol anticoagulants control pills methotrexate probenecid What if I miss a dose? If you miss a dose, take it as soon as you can. If it is almost time for your next dose, take only that dose. Do not take double or extra doses. Where should I keep my medicine? Keep out of the reach of children. Store at room temperature below 25 degrees C (77 degrees F). Keep container tightly closed. Throw away any unused medicine after the expiration date. What should I tell my health care provider before I take this medicine? They need to know if you have any of these conditions: bowel disease, like colitis kidney disease liver disease mononucleosis an unusual or allergic reaction to amoxicillin, penicillin, cephalosporin, other antibiotics, clavulanic acid, other medicines, foods, dyes, or preservatives or trying to get breast-feeding What should I watch for while using this medicine? Tell your doctor or health gericare aide teacher if your symptoms do not improve. Do not treat diarrhea with over the counter products. Contact your doctor if you have diarrhea that lasts more than 2 days or if it is severe and watery. If you have diabetes, you may get a false-positive result for sugar in your urine. Check with your doctor or health gericare aide teacher. control pills may not work properly while you are taking this medicine. Talk to your doctor about using an extra method of control. Prednisone Oral tablet What is this medicine? PREDNISONE (PRED ni sone) is a corticosteroid. It is commonly used to treat inflammation of the skin, joints, lungs, and other organs. Common conditions treated include asthma, allergies, and arthritis. It is also used for other conditions, such as blood disorders and diseases of the adrenal glands. How should I use this medicine? Take this medicine by mouth with a glass of water. Follow the directions on the prescription label. Take this medicine with food. If you are taking this medicine once a day, take it in the morning. Do not take more medicine than you are told to take. Do not suddenly stop taking your medicine because you may develop a severe reaction. Your doctor will tell you how much medicine to take. If your doctor wants you to stop the medicine, the dose may be slowly lowered over time to avoid any side effects. Talk to your supervisor television chassis repair regarding the use of this medicine in children. Special care may be needed. What side effects may I notice from receiving this medicine? Side effects that you should report to your doctor or health gericare aide teacher as soon as possible: allergic reactions like skin rash, itching or hives, swelling of the face, lips, or tongue changes in emotions or moods changes in vision depressed mood eye pain fever or chills, cough, sore throat, pain or difficulty passing urine increased thirst swelling of ankles, feet Side effects that usually do not require medical attention (report to your doctor or health gericare aide teacher if they continue or are bothersome): confusion, excitement, restlessness headache nausea, vomiting skin problems, acne, thin and shiny skin trouble sleeping weight gain What may interact with this medicine? Do not take this medicine with any of the following medications: metyrapone mifepristone This medicine may also interact with the following medications: aminoglutethimide amphotericin B aspirin and aspirin-like medicines barbiturates certain medicines for diabetes, like glipizide or glyburide cholestyramine cholinesterase inhibitors cyclosporine digoxin diuretics ephedrine female hormones, like estrogens and control pills isoniazid ketoconazole NSAIDS, medicines for pain and inflammation, like ibuprofen or naproxen phenytoin rifampin toxoids vaccines warfarin What if I miss a dose? If you miss a dose, take it as soon as you can. If it is almost time for your next dose, talk to your doctor or health gericare aide teacher. You may need to miss a dose or take an extra dose. Do not take double or extra doses without advice. Where should I keep my medicine? Keep out of the reach of children. Store at room temperature between 15 and 30 degrees C (59 and 86 degrees F). Protect from light. Keep container tightly closed. Throw away any unused medicine after the expiration date. What should I tell my health care provider before I take this medicine? They need to know if you have any of these conditions: Louis's syndrome diabetes glaucoma heart disease high blood pressure infection (especially a virus infection such as chickenpox, cold sores, or herpes) kidney disease liver disease mental illness myasthenia gravis osteoporosis seizures stomach or intestine problems thyroid disease an unusual or allergic reaction to lactose, prednisone, other medicines, foods, dyes, or preservatives or trying to get breast-feeding What should I watch for while using this medicine? Visit your doctor or health gericare aide teacher for regular checks on your progress. If you are taking this medicine over a prolonged period, carry an identification card with your name and address, the type and dose of your medicine, and your doctor's name and address. This medicine may increase your risk of getting an infection. Tell your doctor or health gericare aide teacher if you are around anyone with measles or chickenpox, or if you develop sores or blisters that do not heal properly. If you are going to have surgery, tell your doctor or health gericare aide teacher that you have taken this medicine within the last twelve months. Ask your doctor or health gericare aide teacher about your diet. You may need to lower the amount of salt you eat. This medicine may affect blood sugar levels. If you have diabetes, check with your doctor or health gericare aide teacher before you change your diet or the dose of your diabetic medicine. You have been given the following additional information: Smoking Cessation Amoxicillin Trihydrate, Clavulanate Potassium Oral tablet Prednisone Oral tablet (Electronically signed by Jacinto Ness Dr. 09/09/2016 22:40)
--- NOTE | 2016-09-09 22:40 | ED MAR SUMMARY ---
..... Medication Administration Record [facility] [address] [place] [address] Patient: MENDEL OLEARY Visit ID: [id number] 40y, M Weight: 104.3 kg Height/Length: 67 in BMI: 36 ALLERGIES: No Known Drug Allergy Given 18:43 09/09/2016 Dominick Joe R.N. Medication Administered: PREDNISONE [PO], Dose: 40 mg Tablets PO. Medication Ordered: Prednisone PO 40 mg (NOW). Given 18:44 09/09/2016 Dominick Joe R.N. Medication Administered: DUONEB [NEB TX] (IPRATROPIUM-ALBUTEROL), Dose: 1 unit dose Nebulizer Neb TX. Medication Ordered: DuoNeb Neb Tx 1 unit dose (NOW). Given 19:27 09/09/2016 Laxmi Robles R.N. Medication Administered: AUGMENTIN [PO] (AMOXICILLIN-POT CLAVULANATE), Dose: 875 mg Tablets PO. Medication Ordered: Augmentin PO 875 mg (NOW). Given 19:29 09/09/2016 Laxmi Robles R.N. Medication Administered: ALBUTEROL NEB W ATROVENT, Dose: 10 mg Nebulizer Neb TX. Medication Ordered: Albuterol Neb Tx 10 mg continuous (NOW).
--- NOTE | 2016-09-09 22:40 | ED MAR SUMMARY ---
..... Medication Administration Record [facility] [address] [place] [address] Patient: MENDEL OLEARY Visit ID: [id number] 40y, M Weight: 104.3 kg Height/Length: 67 in BMI: 36 ALLERGIES: No Known Drug Allergy Given 18:43 09/09/2016 Dominick Joe R.N. Medication Administered: PREDNISONE [PO], Dose: 40 mg Tablets PO. Medication Ordered: Prednisone PO 40 mg (NOW). Given 18:44 09/09/2016 Dominick Joe R.N. Medication Administered: DUONEB [NEB TX] (IPRATROPIUM-ALBUTEROL), Dose: 1 unit dose Nebulizer Neb TX. Medication Ordered: DuoNeb Neb Tx 1 unit dose (NOW). Given 19:27 09/09/2016 Laxmi Robles R.N. Medication Administered: AUGMENTIN [PO] (AMOXICILLIN-POT CLAVULANATE), Dose: 875 mg Tablets PO. Medication Ordered: Augmentin PO 875 mg (NOW). Given 19:29 09/09/2016 Laxmi Robles R.N. Medication Administered: ALBUTEROL NEB W ATROVENT, Dose: 10 mg Nebulizer Neb TX. Medication Ordered: Albuterol Neb Tx 10 mg continuous (NOW).
--- NOTE | 2016-09-09 22:40 | ED MED RECONCILIATION SUMMARY ---
Patient: MENDEL OLEARY JR Medication Reconciliation Report [facility] VisitID: [id number] [address] [place] [address] 40y, M Registration Date/Time: 09/09/2016 Weight: 104.3 kg Height/Length: 67 in. BMI: 36.0 ALLERGIES: No Known Drug Allergy The patient's Home Medications are listed below: CONTINUE TAKING THE FOLLOWING MEDICATIONS: Albuterol Sulfate HFA Inhalation The source(s) of the original Home Medication information: Not obtained. The following Medications were given to the patient in the Emergency Department: Prednisone [PO] PO 40 mg, administered: 09/09/2016 6:43:00 PM Duoneb [Neb Tx] Neb TX 1 unit dose, administered: 09/09/2016 6:44:00 PM Augmentin [PO] PO 875 mg, administered: 09/09/2016 7:27:00 PM ALBUTEROL NEB W ATROVENT Neb TX 10 mg, administered: 09/09/2016 7:29:00 PM The following Medications were prescribed to the patient: Augmentin 875 mg: take 1 tablet orally every 12 hours for 7 days. No refill. Substitution is permissible.(Start on 09/10/16) -- Jacinto Ness Dr. Prednisone 20 mg: take 2 orally every day for 4 days. Dispense sufficient quantity. No refills.(Start on 09/10/16) -- Jacinto Ness Dr.
--- NOTE | 2016-09-09 22:40 | ED DISCHARGE INSTRUCTIONS ---
Patient: MENDEL OLEARY JR General Instructions [facility] VisitID: [id number] [place] [address] 40y, M Registration Date/Time: 09/09/2016 INSTRUCTIONS Do not smoke. Seek medical help to quit smoking. Your Current Medications: CONTINUE TAKING THE FOLLOWING MEDICATIONS: Albuterol Sulfate HFA Inhalation. Prescription Medications: Augmentin 875 mg: take 1 tablet orally every 12 hours for 7 days. No refill. Substitution is permissible. (Start on 09/10/16) Prednisone 20 mg: take 2 orally every day for 4 days. Dispense sufficient quantity. No refills. (Start on 09/10/16) Follow-up: Follow up with your doctor in about two days. Call for an appointment. Screening today revealed the patient's blood pressure to be in the pre-hypertensive range. The patient should follow up with a primary care provider for blood pressure management. ADDITIONAL INFORMATION How To Quit Smoking Smoking is one of the hardest habits to break. About half of all those who have ever smoked have been able to quit, and most of those (about 70%) who still smoke want to quit. Here are some of the best ways to stop smoking. Keep Trying: It takes most smokers about 8 tries before they are finally able to fully quit. So, the more often you try and fail, the better your chance of quitting the next time! So, don't give up! Go Cold [place]: Most ex-smokers quit cold turkey. Trying to cut back gradually doesn't seem to work as well, perhaps because it continues the smoking habit. Also, it is possible to fool yourself by inhaling more while smoking fewer cigarettes. This results in the same amount of nicotine in your body! Get Support: Support programs can make an important difference, especially for the heavy smoker. These groups offer lectures, methods to change your behavior and peer support. Call the free national Quitline for more information. 484-EJKD-VGN (263-951-7304). Low-cost or free programs are offered by many hospitals, local chapters of the [place] [employer] (158-890-7163) and the [employer] (968-070-4819). Support at home is important too. Non-smokers can help by offering praise and encouragement. If the smoker fails to quit, encourage them to try again! Ywlq-Rvw-Qsgdhxq Medicines: For those who can't quit on their own, Nicotine Replacement Therapy (NRT) may make quitting much easier. Certain aids such as the nicotine patch, gum and lozenge are available without a prescription. However, it is best to use these under the guidance of your doctor. The skin patch provides a steady supply of nicotine to the body. Nicotine gum and lozenge gives temporary bursts of low levels of nicotine. Both methods take the edge off the craving for cigarettes. WARNING: If you feel symptoms of nicotine overdose, such as nausea, vomiting, dizziness, weakness, or fast heartbeat, stop using these and see your doctor. Prescription Medicines: After evaluating your smoking patterns and prior attempts at quitting, your doctor may offer a prescription medicine such as bupropion (Zyban, Wellbutrin), varenicline (Chantix, Champix), a niocotine inhaler or nasal spray. Each has its unique advantage and side effects which your doctor can review with you. Health Benefits Of Quitting: The benefits of quitting start right away and keep improving the longer you go without smokin minutes: blood pressure and pulse return to normal 8 hours: oxygen levels return to normal 2 days: ability to smell and taste begins to improve as damaged nerves start to regrow 2-3 weeks: circulation and lung function improves 1-9 months: decreased cough, congestion and shortness of breath; less tired 1 year: risk of heart attack decreases by half 5 years: risk of lung cancer decreases by half; risk of stroke becomes the same as a non-smoker For information about how to quit smoking, visit the following links: National [employer] [place] , Clearing the Air, Quit Smoking Today - an online booklet. http://www.smokefree.gov/pubs/clearing_the_air.pdf Smokefree.gov http://smokefree.gov/ QuitNet http://www.quitnet.com/ Amoxicillin Trihydrate, Clavulanate Potassium Oral tablet What is this medicine? AMOXICILLIN; CLAVULANIC ACID (a mox i MARY in; CHERYLE smith ic id) is a penicillin antibiotic. It is used to treat certain kinds of bacterial infections. It will not work for colds, flu, or other viral infections. How should I use this medicine? Take this medicine by mouth with a full glass of water. Follow the directions on the prescription label. Take at the start of a meal. Do not crush or chew. If the tablet has a score line, you may cut it in half at the score line for easier swallowing. Take your medicine at regular intervals. Do not take your medicine more often than directed. Take all of your medicine as directed even if you think you are better. Do not skip doses or stop your medicine early. Talk to your it compliance analyst regarding the use of this medicine in children. Special care may be needed. What side effects may I notice from receiving this medicine? Side effects that you should report to your doctor or health careers adviser as soon as possible: allergic reactions like skin rash, itching or hives, swelling of the face, lips, or tongue breathing problems dark urine fever or chills, sore throat redness, blistering, peeling or loosening of the skin, including inside the mouth seizures trouble passing urine or change in the amount of urine unusual bleeding, bruising unusually weak or tired white patches or sores in the mouth or throat Side effects that usually do not require medical attention (report to your doctor or health careers adviser if they continue or are bothersome): diarrhea dizziness headache nausea, vomiting stomach upset vaginal or anal irritation What may interact with this medicine? allopurinol anticoagulants control pills methotrexate probenecid What if I miss a dose? If you miss a dose, take it as soon as you can. If it is almost time for your next dose, take only that dose. Do not take double or extra doses. Where should I keep my medicine? Keep out of the reach of children. Store at room temperature below 25 degrees C (77 degrees F). Keep container tightly closed. Throw away any unused medicine after the expiration date. What should I tell my health care provider before I take this medicine? They need to know if you have any of these conditions: bowel disease, like colitis kidney disease liver disease mononucleosis an unusual or allergic reaction to amoxicillin, penicillin, cephalosporin, other antibiotics, clavulanic acid, other medicines, foods, dyes, or preservatives or trying to get breast-feeding What should I watch for while using this medicine? Tell your doctor or health careers adviser if your symptoms do not improve. Do not treat diarrhea with over the counter products. Contact your doctor if you have diarrhea that lasts more than 2 days or if it is severe and watery. If you have diabetes, you may get a false-positive result for sugar in your urine. Check with your doctor or health careers adviser. control pills may not work properly while you are taking this medicine. Talk to your doctor about using an extra method of control. Prednisone Oral tablet What is this medicine? PREDNISONE (PRED ni sone) is a corticosteroid. It is commonly used to treat inflammation of the skin, joints, lungs, and other organs. Common conditions treated include asthma, allergies, and arthritis. It is also used for other conditions, such as blood disorders and diseases of the adrenal glands. How should I use this medicine? Take this medicine by mouth with a glass of water. Follow the directions on the prescription label. Take this medicine with food. If you are taking this medicine once a day, take it in the morning. Do not take more medicine than you are told to take. Do not suddenly stop taking your medicine because you may develop a severe reaction. Your doctor will tell you how much medicine to take. If your doctor wants you to stop the medicine, the dose may be slowly lowered over time to avoid any side effects. Talk to your it compliance analyst regarding the use of this medicine in children. Special care may be needed. What side effects may I notice from receiving this medicine? Side effects that you should report to your doctor or health careers adviser as soon as possible: allergic reactions like skin rash, itching or hives, swelling of the face, lips, or tongue changes in emotions or moods changes in vision depressed mood eye pain fever or chills, cough, sore throat, pain or difficulty passing urine increased thirst swelling of ankles, feet Side effects that usually do not require medical attention (report to your doctor or health careers adviser if they continue or are bothersome): confusion, excitement, restlessness headache nausea, vomiting skin problems, acne, thin and shiny skin trouble sleeping weight gain What may interact with this medicine? Do not take this medicine with any of the following medications: metyrapone mifepristone This medicine may also interact with the following medications: aminoglutethimide amphotericin B aspirin and aspirin-like medicines barbiturates certain medicines for diabetes, like glipizide or glyburide cholestyramine cholinesterase inhibitors cyclosporine digoxin diuretics ephedrine female hormones, like estrogens and control pills isoniazid ketoconazole NSAIDS, medicines for pain and inflammation, like ibuprofen or naproxen phenytoin rifampin toxoids vaccines warfarin What if I miss a dose? If you miss a dose, take it as soon as you can. If it is almost time for your next dose, talk to your doctor or health careers adviser. You may need to miss a dose or take an extra dose. Do not take double or extra doses without advice. Where should I keep my medicine? Keep out of the reach of children. Store at room temperature between 15 and 30 degrees C (59 and 86 degrees F). Protect from light. Keep container tightly closed. Throw away any unused medicine after the expiration date. What should I tell my health care provider before I take this medicine? They need to know if you have any of these conditions: Louis's syndrome diabetes glaucoma heart disease high blood pressure infection (especially a virus infection such as chickenpox, cold sores, or herpes) kidney disease liver disease mental illness myasthenia gravis osteoporosis seizures stomach or intestine problems thyroid disease an unusual or allergic reaction to lactose, prednisone, other medicines, foods, dyes, or preservatives or trying to get breast-feeding What should I watch for while using this medicine? Visit your doctor or health careers adviser for regular checks on your progress. If you are taking this medicine over a prolonged period, carry an identification card with your name and address, the type and dose of your medicine, and your doctor's name and address. This medicine may increase your risk of getting an infection. Tell your doctor or health careers adviser if you are around anyone with measles or chickenpox, or if you develop sores or blisters that do not heal properly. If you are going to have surgery, tell your doctor or health careers adviser that you have taken this medicine within the last twelve months. Ask your doctor or health careers adviser about your diet. You may need to lower the amount of salt you eat. This medicine may affect blood sugar levels. If you have diabetes, check with your doctor or health careers adviser before you change your diet or the dose of your diabetic medicine. You have been given the following additional information: Smoking Cessation Amoxicillin Trihydrate, Clavulanate Potassium Oral tablet Prednisone Oral tablet (Electronically signed by Jacinto Ness Dr. 09/09/2016 22:40)
== END 2016-09-09 21:30 | disposition home or self-care (01) ==
LOC: ED SRH 18:30
DX: J44.1 Chronic obstructive pulmonary disease with (acute) exacerbation (principal); I10 Essential (primary) hypertension; F17.210 Nicotine dependence, cigarettes, uncomplicated

== ENCOUNTER 2016-09-22 03:11 | Emergency (ER) | payer SELFPAY ==
--- NOTE | 2016-09-22 04:53 | ED ORDER SUMMARY ---
..... Patient: MENDEL OLEARY JR OrderSheet [facility] VisitID: [id number] [place] [address] 40y, M Registration Date/Time: 09/22/2016 ORDER SHEET Weight: 95.2 kg (stated) Allergies: No Known Drug Allergy GENERAL ORDERS: Chest 1V Urgent (03:29 09/22/2016 Jose Alcala) (Ack 3:31 SRedmond) (3:54 JDeElena R.N.) MEDICATION ORDERS: DuoNeb Neb Tx 1 unit dose (NOW) (03:29 09/22/2016 Jose Alcala) (Ack 3:34 JDeElena R.N.) (3:36 JDeElena R.N.) Prednisone PO 40 mg (NOW) (03:29 09/22/2016 Jose Alcala) (Ack 3:34 JDeElena R.N.) (3:36 JDeElena R.N.) DuoNeb Neb Tx 1 unit dose (NOW) (04:09 09/22/2016 Jose Alcala) (Ack 4:10 JDeElena R.N.) (4:14 JDeElena R.N.) Levofloxacin PO 500 mg (NOW) (04:25 09/22/2016 Jose Alcala) (Ack 4:30 JDeElena R.N.) (4:32 JDeElena R.N.) IV FLUIDS: ORDER SHEET NOTES: [Electronically signed by Jacinto Ness Dr. (04:53 09/22/2016)] [Electronically signed by Markel Lara R.N. (05:08 09/22/2016)] [Electronically locked/signed by Markel Lara R.N. (05:08 09/22/2016)]
--- NOTE | 2016-09-22 04:53 | ED CLINICAL REPORT ---
Clinical Report - Physicians/Mid Levels [place] [address] [place] [address] 09/22/2016 3:11 Patient: MENDEL OLEARY JR Time Seen: 03:13; initial patient contact. Arrived- By private vehicle. Historian- patient. HISTORY OF PRESENT ILLNESS Chief Complaint: COUGH. This started about 1 month ago and is still present and worsening. (persistent). It was gradual in onset. The illness is described as moderate. The patient has had sputum production, a cough and difficulty breathing. No chest discomfort or pain, fever or chills. Additional history - No known contact with a sick individual. Similar symptoms previously: Many times. Recent medical care: The patient was seen recently at this facility in the emergency department. Seen for similar symptoms. Evaluation/treatment: CXR and medication and antibiotic prescribed. Diagnosis: COPD exacerbation. REVIEW OF SYSTEMS The patient has had a headache. No pedal edema or calf pain. All systems otherwise negative, except as recorded above. PAST HISTORY Leukocytosis. Pharyngitis. Hypertension. Back Pain. Hernia. SURGERIES: Splenectomy. Medications: None. Allergies: No Known Drug Allergy. SOCIAL HISTORY Current every day smoker. History of drug use: methamphetamines. No alcohol use. ADDITIONAL NOTES The nursing notes have been reviewed with agreement regarding the chief complaint, PMH and patient medications and allergies. PHYSICAL EXAM Vital Signs: 09/22/2016 03:15 BP: 139/71. HR: 93. RR: 18. O2 saturation: 97%. Temp: 98.3 F. Pain level now: 11/22. Have been reviewed as normal. Appearance: Alert. No acute distress. Eyes: Eyes normal inspection. ENT: Pharynx normal. Neck: Normal inspection. CVS: Normal heart rate and rhythm. Heart sounds normal. Respiratory: Mild respiratory distress with accessory muscle use. Prolonged expirations. Expiratory moderate bilateral wheezes diffusely. No rales or rhonchi. Skin: Skin warm and dry. Normal skin color. No rash. Extremities: No calf tenderness. No lower extremity edema. Neuro: Oriented X 3. LABS, X-RAYS, AND EKG Chest X-ray: No acute disease. Normal lung markings present. No infiltrate. Views: AP. Technique: good. The X-rays were independently viewed by me and interpreted contemporaneously by me. A comparison with prior films reveals that the findings are unchanged. Interpretation time: 04:04. PROGRESS AND PROCEDURES Course of Care: Prednisone 40 mg PO given. DuoNeb nebulizer treatment (1 unit dose) given. Physical exam findings are improved. Symptoms better. Disposition: Discharged home in good and improved condition. Condition: good. CLINICAL IMPRESSION Acute exacerbation of COPD. INSTRUCTIONS Do not smoke. Seek medical help to quit smoking. Your Current Medications: CONTINUE TAKING THE FOLLOWING MEDICATIONS: None*. Prescription Medications: Albuterol 0.083% Inhalation Solution: inhale 1 unit dose (3 mL) via nebulizer every 4 hours as needed for wheezing, difficulty breathing or shortness of breath. No refill. (Disp # 75) Prednisone 10 mg tablets: take 4 tablets every day for 5 days ; then take 2 tablets every day for 3 days ; then take 1 tablet every day for 2 days. Dispense sufficient quantity. No refills. Follow-up: Follow up with your doctor in about two days. Call for an appointment. Screening today revealed the patient's blood pressure to be in the pre-hypertensive range. The patient should follow up with a primary care provider for blood pressure management. (Electronically signed by Jacinto Ness Dr. 09/22/2016 4:53)
--- NOTE | 2016-09-22 04:53 | ED ORDER SUMMARY ---
..... Patient: MENDEL OLEARY JR OrderSheet [facility] VisitID: [id number] [place] [address] 40y, M Registration Date/Time: 09/22/2016 ORDER SHEET Weight: 95.2 kg (stated) Allergies: No Known Drug Allergy GENERAL ORDERS: Chest 1V Urgent (03:29 09/22/2016 Jose Alcala) (Ack 3:31 SRedmond) (3:54 JDeElena R.N.) MEDICATION ORDERS: DuoNeb Neb Tx 1 unit dose (NOW) (03:29 09/22/2016 Jose Alcala) (Ack 3:34 JDeElena R.N.) (3:36 JDeElena R.N.) Prednisone PO 40 mg (NOW) (03:29 09/22/2016 Jose Alcala) (Ack 3:34 JDeElena R.N.) (3:36 JDeElena R.N.) DuoNeb Neb Tx 1 unit dose (NOW) (04:09 09/22/2016 Jose Alcala) (Ack 4:10 JDeElena R.N.) (4:14 JDeElena R.N.) Levofloxacin PO 500 mg (NOW) (04:25 09/22/2016 Jose Alcala) (Ack 4:30 JDeElena R.N.) (4:32 JDeElena R.N.) IV FLUIDS: ORDER SHEET NOTES: [Electronically signed by Jacinto Ness Dr. (04:53 09/22/2016)] [Electronically signed by Markel Lara R.N. (05:08 09/22/2016)] [Electronically locked/signed by Markel Lara R.N. (05:08 09/22/2016)]
--- NOTE | 2016-09-22 04:53 | ED NURSING NOTES ---
Clinical Report - Nurses [facility] [address] [place] [address] 09/22/2016 3:11 Patient: DOUG OLEARY JR TRIAGE Triage time 03:15. Acuity: LEVEL 4. Chief Complaint: COUGH and (Doug says "my lungs are starting to bleed since I have been coughing so much."). Alert. No acute distress. SEPSIS SCREEN: Sepsis Screen: negative. Negative (no infection suspected/documented). --03:21 Markel Lara R.N. 03:15 09/22/16. BP: 139/71 (regular adult cuff) taken on the left arm, via an automated monitor, while lying. HR: 93 (normal rate). RR: 18 (regular, unlabored and normal). O2 saturation: 97% on room air. Temp: 98.3 F (oral). Pain level now: 11/22. --03:21 Markel Lara R.N. Weight: 95.2 kg stated. Height/Length: 67 inches Per Patient. BMI: 32.9. --03:18 Markel Laar R.N. Medications None. --03:19 Markel Lara R.N. Medication/allergy information source: the patient. --03:21 Markel Lara R.N. Allergies No Known Drug Allergy. --03:19 Markel Lara R.N. History Arrived by private vehicle. Historian: patient. Primary physician (Dr. Carmoan). Onset. (Ongoing for about 1 month. Given antibiotics and steroids during an ER visit. Has completed course of antbx. Cough gets worse at night.). He has had a headache (Coughing irritates his cough). No fever. SOCIAL HX: Current every day light tobacco smoker (cigarette)- less than 1/2 a pack per day (Smoker for about 25 years.). History of drug use: methamphetamines. Recently used drugs days ago. No alcohol use. He has not traveled outside the [place] The patient was not exposed to MRSA. ABUSE ASSESSMENT: Abuse assessment: The patient was asked "Do you feel safe in your home?" and "Has anyone hurt you or threatened to hurt you?". No report of abuse. SELF HARM ASSESSMENT: A self harm assessment was performed. The patient answered "no" to the question "Do you have thoughts of harming or killing yourself?" and "Have you recently had thoughts about harming or killing others?". FALL RISK ASSESSMENT: Fall risk assessment completed. No fall risk identified. NUTRITIONAL RISK ASSESSMENT: The nutritional risk assessment revealed no deficiencies. FUNCTIONAL ASSESSMENT: Functional assessment: no impairments noted. LEARNING NEEDS ASSESSMENT: The learning needs assessment revealed no barriers. SKIN INTEGRITY ASSESSMENT: Skin integrity risk assessment completed. No skin integrity risk identified. --03:21 Markel Lara R.N. PROBLEMS: Leukocytosis. Pharyngitis. Hypertension. Back Pain. Hernia. Immunizations. --03:19 Markel Lara R.N. ADDITIONAL SURGERIES: Splenectomy. --03:19 Markel Lara R.N. Assessment GENERAL / NEURO / PSYCH: Alert. Oriented X 4. Appears in no acute distress. Lando Coma Scale: 15- eyes open spontaneously (4); best verbal response- oriented x 4 (5); best motor response- obeys commands (6). Patient appears calm and cooperative. RESPIRATORY: Respirations not labored. SKIN: Skin is warm and dry. --03:21 Markel Lara R.N. Interventions ID band on patient. To treatment room. --03:21 Markel Lara R.N. PHYSICAL ASSESSMENT 03:15. Ambulatory to room. GENERAL / NEURO / PSYCH: Alert. Oriented X 4. He appears uncomfortable. RESPIRATORY: Mild respiratory distress. The patient can speak in full sentences. Wheezes diffusely over both lungs. CVS: Heart sounds within normal limits. Pulses: right radial 2+ and left radial 2+. Capillary refill less than 2 seconds. SKIN: Skin is warm. --05:08 Markel Lara R.N. NURSING PROGRESS NOTES The initial plan of care for this patient has been created This plan of care was discussed with the patient. Patient gowned. Reassurance given to the patient. Two patient identifiers checked. Call light placed in reach. Side rails up x 1. Bed placed in lowest position. Brakes of bed on. Patient ready for evaluation- ED physician notified. --03:21 Markel Lara R.N. 03:36 09/22/2016 Duoneb (Ipratropium-Albuterol) Neb TX Nebulizer 1 unit dose given. Given by the respiratory therapist. Allergies verified and confirmed 5 rights. --03:37 Markel Lara R.N. 03:37 09/22/2016 Prednisone PO Tablets 40 mg given. Allergies verified and confirmed 5 rights. --03:37 Markel Lara R.N. 04:14 09/22/2016 Duoneb (Ipratropium-Albuterol) Neb TX Nebulizer 1 unit dose given. Given by the nurse. Allergies verified and confirmed 5 rights. --04:14 Markel Lara R.N. 04:30 09/22/2016 Duoneb Neb TX Response: no adverse reaction the patient feels better. --04:30 Markel Lara R.N. 04:31 09/22/2016 Duoneb Neb TX Response: no adverse reaction the patient feels better. --04:31 Markel Lara R.N. 04:31 09/22/2016 Prednisone PO Response: no adverse reaction. --04:31 Markel Lara R.N. 04:32 09/22/2016 Levofloxacin PO Tablets 500 mg given. Allergies verified and confirmed 5 rights. --04:32 Markel Lara R.N. 05:01 09/22/2016 Levofloxacin PO Response: no adverse reaction. --05:01 Markel Lara R.N. DISPOSITION / DISCHARGE Departure time: 05:03. Condition at departure: stable. The goals identified in the patient's plan of care were met. No learning barriers present. Discharge instructions provided and reviewed with the patient. Reviewed medication(s) side effects, precautions, dosing and course information. Prescription(s) given to the patient (Doug verbalizes importance of finishing all prescribed antibiotics. He was given 2 prescription cards upon d/c to help medication affordability.). Patient verbalized understanding. Written instructions provided in Swedish. ( Doug verbalizes understanding of all d/c instructions including need to f/u with PCP (Dr. Carmona). He has no questions and voices no concerns at this time.). The patient was discharged by the physician. He was discharged home and accompanied by supervisor shaving and splitting. He left the Emergency Department ambulatory and via private vehicle. 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 KANDI COMA SCORE: Lando Coma Scale: 15- eyes open spontaneously (4); best verbal response- oriented x 4 (5); best motor response- obeys commands (6). --05:07 Markel Lara R.N. 05:01 09/22/16. BP: 156/105 (regular adult cuff) taken on the left arm, via an automated monitor, while sitting. HR: 94 (normal rate). RR: 18 (regular, unlabored and normal). O2 saturation: 98% on room air. Temp: 98 F (oral). Pain level now: 0/10. Additional comments: EDP aware of d/c VS. Pt to f/u with Dr. Carmona's office this morning for first available appointment. . --05:07 Markel Lara R.N. Locked/Released at 09/22/2016 5:08 by Markel Lara R.N.
--- NOTE | 2016-09-22 05:08 | ED MED RECONCILIATION SUMMARY ---
Patient: MENDEL OLERAY JR Medication Reconciliation Report [facility] VisitID: [id number] [address] [place] [address] 40y, M Registration Date/Time: 09/22/2016 Weight: 95.2 kg Height/Length: 67 in. BMI: 32.9 ALLERGIES: No Known Drug Allergy The patient's Home Medications are listed below: NONE. The source(s) of the original Home Medication information: patient The following Medications were given to the patient in the Emergency Department: Duoneb [Neb Tx] Neb TX 1 unit dose, administered: 09/22/2016 3:36:00 AM Prednisone [PO] PO 40 mg, administered: 09/22/2016 3:37:00 AM Duoneb [Neb Tx] Neb TX 1 unit dose, administered: 09/22/2016 4:14:00 AM Levofloxacin [PO] PO 500 mg, administered: 09/22/2016 4:32:00 AM The following Medications were prescribed to the patient: Albuterol 0.083% Inhalation Solution: inhale 1 unit dose (3 mL) via nebulizer every 4 hours as needed for wheezing, difficulty breathing or shortness of breath. No refill.(Disp # 75) -- Jacinto Ness Dr. Prednisone 10 mg tablets: take 4 tablets every day for 5 days ; then take 2 tablets every day for 3 days ; then take 1 tablet every day for 2 days. Dispense sufficient quantity. No refills. -- Jacinto Ness Dr.
--- NOTE | 2016-09-22 05:08 | ED MED RECONCILIATION SUMMARY ---
Patient: MENDEL OLEARY JR Medication Reconciliation Report [facility] VisitID: [id number] [address] [place] [address] 40y, M Registration Date/Time: 09/22/2016 Weight: 95.2 kg Height/Length: 67 in. BMI: 32.9 ALLERGIES: No Known Drug Allergy The patient's Home Medications are listed below: NONE. The source(s) of the original Home Medication information: patient The following Medications were given to the patient in the Emergency Department: Duoneb [Neb Tx] Neb TX 1 unit dose, administered: 09/22/2016 3:36:00 AM Prednisone [PO] PO 40 mg, administered: 09/22/2016 3:37:00 AM Duoneb [Neb Tx] Neb TX 1 unit dose, administered: 09/22/2016 4:14:00 AM Levofloxacin [PO] PO 500 mg, administered: 09/22/2016 4:32:00 AM The following Medications were prescribed to the patient: Albuterol 0.083% Inhalation Solution: inhale 1 unit dose (3 mL) via nebulizer every 4 hours as needed for wheezing, difficulty breathing or shortness of breath. No refill.(Disp # 75) -- Jacinto Ness Dr. Prednisone 10 mg tablets: take 4 tablets every day for 5 days ; then take 2 tablets every day for 3 days ; then take 1 tablet every day for 2 days. Dispense sufficient quantity. No refills. -- Jacinto Ness Dr.
--- NOTE | 2016-09-22 05:08 | ED DISCHARGE INSTRUCTIONS ---
Patient: MENDEL OLEARY JR General Instructions [facility] VisitID: [id number] [place] [address] 40y, M Registration Date/Time: 09/22/2016 Acute exacerbation of COPD. INSTRUCTIONS Do not smoke. Seek medical help to quit smoking. Your Current Medications: CONTINUE TAKING THE FOLLOWING MEDICATIONS: None*. Prescription Medications: Albuterol 0.083% Inhalation Solution: inhale 1 unit dose (3 mL) via nebulizer every 4 hours as needed for wheezing, difficulty breathing or shortness of breath. No refill. (Disp # 75) Prednisone 10 mg tablets: take 4 tablets every day for 5 days ; then take 2 tablets every day for 3 days ; then take 1 tablet every day for 2 days. Dispense sufficient quantity. No refills. Follow-up: Follow up with your doctor in about two days. Call for an appointment. Screening today revealed the patient's blood pressure to be in the pre-hypertensive range. The patient should follow up with a primary care provider for blood pressure management. ADDITIONAL INFORMATION COPD Flare Both emphysema and chronic bronchitis are forms of chronic obstructive pulmonary disease (COPD). It is most often caused by many years of smoking tobacco. Many things can make your lung disease suddenly get worse. These causes include the common cold, pneumonia, acute bronchitis, missing doses of your regular breathing medicines, or being around smoke, dust, or other air pollutants. A COPD flare may last 7 to 14 days. Your doctor may prescribe medicineto relax your airways and prevent wheezing. Your doctor may also prescribe antibiotics if he or she thinks you havea bacterial infection. Prednisone can helpease inflammation in a severe attack. Home care Here are things you can do at home: Drink lots of water or other fluids (at least 10 glasses a day) during an attack. This will loosen lung secretions and make it easier to breathe. If you have heart or kidney disease, check with your doctor before you drink extra amounts of fluids. Take prescribed medicine exactly at the times advised. If you have a hand-held inhaler or aerosol breathing medicine, don't use it more than once every 4 hours, unless your doctor tells you to. If you were givenan antibiotic or prednisone, take all of the medicine even if you are feeling better after a few days. Don't smoke. Avoid being aroundthe smoke of others. If you were given an inhaler, use it exactly as directed. If you need to use it more often than prescribed, your condition may be getting worse. Call your doctor. Follow-up care Follow up with your health care provider.If you are 65 or older or have chronic asthma or COPD, you should get a single dose of the pneumococcal vaccine and aflu shot each year. You may need a second dose of the pneumococcal vaccine if you had the first dose at a younger age. Your health care provider will let you know if you need a second dose. For all other people, the usual dose for the pneumococcal vaccine is 1 or 2 shots. Yourprovider can discuss this with you. When to seek medical care Get prompt medical attention ifany of these occur: Increased wheezing or shortness of breath Need to use your inhalers more often than usual without relief Fever of 100.4F(38C) or higher, or as directed by your health care provider Coughing up lots of dark-colored or bloody sputum (mucus) Chest pain with each breath You do not start to improve within 24 hours How To Quit Smoking Smoking is one of the hardest habits to break. About half of all those who have ever smoked have been able to quit, and most of those (about 70%) who still smoke want to quit. Here are some of the best ways to stop smoking. Keep Trying: It takes most smokers about 8 tries before they are finally able to fully quit. So, the more often you try and fail, the better your chance of quitting the next time! So, don't give up! Go Cold Goodell: Most ex-smokers quit cold turkey. Trying to cut back gradually doesn't seem to work as well, perhaps because it continues the smoking habit. Also, it is possible to fool yourself by inhaling more while smoking fewer cigarettes. This results in the same amount of nicotine in your body! Get Support: Support programs can make an important difference, especially for the heavy smoker. These groups offer lectures, methods to change your behavior and peer support. Call the free national Quitline for more information. 768-DSZG-EPE (482-885-3689). Low-cost or free programs are offered by many hospitals, local chapters of the [employer] (985-298-1416) and the [employer] (957-281-7771). Support at home is important too. Non-smokers can help by offering praise and encouragement. If the smoker fails to quit, encourage them to try again! Dxtf-Xnz-Uszlblb Medicines: For those who can't quit on their own, Nicotine Replacement Therapy (NRT) may make quitting much easier. Certain aids such as the nicotine patch, gum and lozenge are available without a prescription. However, it is best to use these under the guidance of your doctor. The skin patch provides a steady supply of nicotine to the body. Nicotine gum and lozenge gives temporary bursts of low levels of nicotine. Both methods take the edge off the craving for cigarettes. WARNING: If you feel symptoms of nicotine overdose, such as nausea, vomiting, dizziness, weakness, or fast heartbeat, stop using these and see your doctor. Prescription Medicines: After evaluating your smoking patterns and prior attempts at quitting, your doctor may offer a prescription medicine such as bupropion (Zyban, Wellbutrin), varenicline (Chantix, Champix), a niocotine inhaler or nasal spray. Each has its unique advantage and side effects which your doctor can review with you. Health Benefits Of Quitting: The benefits of quitting start right away and keep improving the longer you go without smokin minutes: blood pressure and pulse return to normal 8 hours: oxygen levels return to normal 2 days: ability to smell and taste begins to improve as damaged nerves start to regrow 2-3 weeks: circulation and lung function improves 1-9 months: decreased cough, congestion and shortness of breath; less tired 1 year: risk of heart attack decreases by half 5 years: risk of lung cancer decreases by half; risk of stroke becomes the same as a non-smoker For information about how to quit smoking, visit the following links: National [employer] [place] , Clearing the Air, Quit Smoking Today - an online booklet. http://www.smokefree.gov/pubs/clearing_the_air.pdf Smokefree.gov http://smokefree.gov/ QuitNet http://www.quitnet.com/ Albuterol Sulfate Nebulizer solution What is this medicine? ALBUTEROL (al BYOO ter ole) is a bronchodilator. It helps to open up the airways in your lungs to make it easier to breathe. This medicine is used to treat and to prevent bronchospasm. How should I use this medicine? This medicine is used in a nebulizer. Nebulizers make a liquid into an aerosol that you breathe in through your mouth or your mouth and nose into your lungs. You will be taught how to use your nebulizer. Follow the directions on your prescription label. Take your medicine at regular intervals. Do not use more often than directed. Talk to your inking machine tender regarding the use of this medicine in children. Special care may be needed. What side effects may I notice from receiving this medicine? Side effects that you should report to your doctor or health rehab care assistant as soon as possible: allergic reactions like skin rash, itching or hives, swelling of the face, lips, or tongue breathing problems chest pain feeling faint or lightheaded, falls high blood pressure irregular heartbeat fever muscle cramps or weakness pain, tingling, numbness in the hands or feet vomiting Side effects that usually do not require medical attention (report to your doctor or health rehab care assistant if they continue or are bothersome): cough difficulty sleeping headache nervousness, trembling stomach upset stuffy or runny nose throat irritation unusual taste What may interact with this medicine? anti-infectives like chloroquine and pentamidine caffeine cisapride diuretics medicines for colds medicines for depression or emotional or psychotic conditions medicines for weight loss including some herbal products methadone some antibiotics like clarithromycin, erythromycin, levofloxacin, and linezolid some heart medicines steroid hormones like dexamethasone, cortisone, hydrocortisone theophylline thyroid hormones What if I miss a dose? If you miss a dose, use it as soon as you can. If it is almost time for your next dose, use only that dose. Do not use double or extra doses. Where should I keep my medicine? Keep out of the reach of children. Store between 2 and 25 degrees C (36 and 77 degrees F). Do not freeze. Protect from light. Throw away any unused medicine after the expiration date. Most products are kept in the foil package until time of use. Some products can be used up to 1 week after they are removed from the foil pouch. Check the instructions that come with your medicine. What should I tell my health care provider before I take this medicine? They need to know if you have any of the following conditions: diabetes heart disease or irregular heartbeat high blood pressure pheochromocytoma seizures thyroid disease an unusual or allergic reaction to albuterol, levalbuterol, sulfites, other medicines, foods, dyes, or preservatives or trying to get breast-feeding What should I watch for while using this medicine? Tell your doctor or health rehab care assistant if your symptoms do not improve. Do not use extra albuterol. Call your doctor right away if your asthma or bronchitis gets worse while you are using this medicine. If your mouth gets dry try chewing sugarless gum or sucking hard candy. Drink water as directed. Prednisone Oral tablet What is this medicine? PREDNISONE (PRED ni sone) is a corticosteroid. It is commonly used to treat inflammation of the skin, joints, lungs, and other organs. Common conditions treated include asthma, allergies, and arthritis. It is also used for other conditions, such as blood disorders and diseases of the adrenal glands. How should I use this medicine? Take this medicine by mouth with a glass of water. Follow the directions on the prescription label. Take this medicine with food. If you are taking this medicine once a day, take it in the morning. Do not take more medicine than you are told to take. Do not suddenly stop taking your medicine because you may develop a severe reaction. Your doctor will tell you how much medicine to take. If your doctor wants you to stop the medicine, the dose may be slowly lowered over time to avoid any side effects. Talk to your inking machine tender regarding the use of this medicine in children. Special care may be needed. What side effects may I notice from receiving this medicine? Side effects that you should report to your doctor or health rehab care assistant as soon as possible: allergic reactions like skin rash, itching or hives, swelling of the face, lips, or tongue changes in emotions or moods changes in vision depressed mood eye pain fever or chills, cough, sore throat, pain or difficulty passing urine increased thirst swelling of ankles, feet Side effects that usually do not require medical attention (report to your doctor or health rehab care assistant if they continue or are bothersome): confusion, excitement, restlessness headache nausea, vomiting skin problems, acne, thin and shiny skin trouble sleeping weight gain What may interact with this medicine? Do not take this medicine with any of the following medications: metyrapone mifepristone This medicine may also interact with the following medications: aminoglutethimide amphotericin B aspirin and aspirin-like medicines barbiturates certain medicines for diabetes, like glipizide or glyburide cholestyramine cholinesterase inhibitors cyclosporine digoxin diuretics ephedrine female hormones, like estrogens and control pills isoniazid ketoconazole NSAIDS, medicines for pain and inflammation, like ibuprofen or naproxen phenytoin rifampin toxoids vaccines warfarin What if I miss a dose? If you miss a dose, take it as soon as you can. If it is almost time for your next dose, talk to your doctor or health rehab care assistant. You may need to miss a dose or take an extra dose. Do not take double or extra doses without advice. Where should I keep my medicine? Keep out of the reach of children. Store at room temperature between 15 and 30 degrees C (59 and 86 degrees F). Protect from light. Keep container tightly closed. Throw away any unused medicine after the expiration date. What should I tell my health care provider before I take this medicine? They need to know if you have any of these conditions: Louis's syndrome diabetes glaucoma heart disease high blood pressure infection (especially a virus infection such as chickenpox, cold sores, or herpes) kidney disease liver disease mental illness myasthenia gravis osteoporosis seizures stomach or intestine problems thyroid disease an unusual or allergic reaction to lactose, prednisone, other medicines, foods, dyes, or preservatives or trying to get breast-feeding What should I watch for while using this medicine? Visit your doctor or health rehab care assistant for regular checks on your progress. If you are taking this medicine over a prolonged period, carry an identification card with your name and address, the type and dose of your medicine, and your doctor's name and address. This medicine may increase your risk of getting an infection. Tell your doctor or health rehab care assistant if you are around anyone with measles or chickenpox, or if you develop sores or blisters that do not heal properly. If you are going to have surgery, tell your doctor or health rehab care assistant that you have taken this medicine within the last twelve months. Ask your doctor or health rehab care assistant about your diet. You may need to lower the amount of salt you eat. This medicine may affect blood sugar levels. If you have diabetes, check with your doctor or health rehab care assistant before you change your diet or the dose of your diabetic medicine. You have been given the following additional information: COPD Flare Smoking Cessation Albuterol Sulfate Nebulizer solution Prednisone Oral tablet (Electronically signed by Jacinto Ness Dr. 09/22/2016 4:53)
--- NOTE | 2016-09-22 05:08 | ED DISCHARGE INSTRUCTIONS ---
Patient: MENDEL OLEARY JR General Instructions [facility] VisitID: [id number] [place] [address] 40y, M Registration Date/Time: 09/22/2016 Acute exacerbation of COPD. INSTRUCTIONS Do not smoke. Seek medical help to quit smoking. Your Current Medications: CONTINUE TAKING THE FOLLOWING MEDICATIONS: None*. Prescription Medications: Albuterol 0.083% Inhalation Solution: inhale 1 unit dose (3 mL) via nebulizer every 4 hours as needed for wheezing, difficulty breathing or shortness of breath. No refill. (Disp # 75) Prednisone 10 mg tablets: take 4 tablets every day for 5 days ; then take 2 tablets every day for 3 days ; then take 1 tablet every day for 2 days. Dispense sufficient quantity. No refills. Follow-up: Follow up with your doctor in about two days. Call for an appointment. Screening today revealed the patient's blood pressure to be in the pre-hypertensive range. The patient should follow up with a primary care provider for blood pressure management. ADDITIONAL INFORMATION COPD Flare Both emphysema and chronic bronchitis are forms of chronic obstructive pulmonary disease (COPD). It is most often caused by many years of smoking tobacco. Many things can make your lung disease suddenly get worse. These causes include the common cold, pneumonia, acute bronchitis, missing doses of your regular breathing medicines, or being around smoke, dust, or other air pollutants. A COPD flare may last 7 to 14 days. Your doctor may prescribe medicineto relax your airways and prevent wheezing. Your doctor may also prescribe antibiotics if he or she thinks you havea bacterial infection. Prednisone can helpease inflammation in a severe attack. Home care Here are things you can do at home: Drink lots of water or other fluids (at least 10 glasses a day) during an attack. This will loosen lung secretions and make it easier to breathe. If you have heart or kidney disease, check with your doctor before you drink extra amounts of fluids. Take prescribed medicine exactly at the times advised. If you have a hand-held inhaler or aerosol breathing medicine, don't use it more than once every 4 hours, unless your doctor tells you to. If you were givenan antibiotic or prednisone, take all of the medicine even if you are feeling better after a few days. Don't smoke. Avoid being aroundthe smoke of others. If you were given an inhaler, use it exactly as directed. If you need to use it more often than prescribed, your condition may be getting worse. Call your doctor. Follow-up care Follow up with your health care provider.If you are 65 or older or have chronic asthma or COPD, you should get a single dose of the pneumococcal vaccine and aflu shot each year. You may need a second dose of the pneumococcal vaccine if you had the first dose at a younger age. Your health care provider will let you know if you need a second dose. For all other people, the usual dose for the pneumococcal vaccine is 1 or 2 shots. Yourprovider can discuss this with you. When to seek medical care Get prompt medical attention ifany of these occur: Increased wheezing or shortness of breath Need to use your inhalers more often than usual without relief Fever of 100.4F(38C) or higher, or as directed by your health care provider Coughing up lots of dark-colored or bloody sputum (mucus) Chest pain with each breath You do not start to improve within 24 hours How To Quit Smoking Smoking is one of the hardest habits to break. About half of all those who have ever smoked have been able to quit, and most of those (about 70%) who still smoke want to quit. Here are some of the best ways to stop smoking. Keep Trying: It takes most smokers about 8 tries before they are finally able to fully quit. So, the more often you try and fail, the better your chance of quitting the next time! So, don't give up! Go Cold [place]: Most ex-smokers quit cold turkey. Trying to cut back gradually doesn't seem to work as well, perhaps because it continues the smoking habit. Also, it is possible to fool yourself by inhaling more while smoking fewer cigarettes. This results in the same amount of nicotine in your body! Get Support: Support programs can make an important difference, especially for the heavy smoker. These groups offer lectures, methods to change your behavior and peer support. Call the free national Quitline for more information. 274-QKLL-AER (608-287-6070). Low-cost or free programs are offered by many hospitals, local chapters of the [employer] (048-083-7377) and the [employer] (230-441-1388). Support at home is important too. Non-smokers can help by offering praise and encouragement. If the smoker fails to quit, encourage them to try again! Xlza-Dac-Lxbvrju Medicines: For those who can't quit on their own, Nicotine Replacement Therapy (NRT) may make quitting much easier. Certain aids such as the nicotine patch, gum and lozenge are available without a prescription. However, it is best to use these under the guidance of your doctor. The skin patch provides a steady supply of nicotine to the body. Nicotine gum and lozenge gives temporary bursts of low levels of nicotine. Both methods take the edge off the craving for cigarettes. WARNING: If you feel symptoms of nicotine overdose, such as nausea, vomiting, dizziness, weakness, or fast heartbeat, stop using these and see your doctor. Prescription Medicines: After evaluating your smoking patterns and prior attempts at quitting, your doctor may offer a prescription medicine such as bupropion (Zyban, Wellbutrin), varenicline (Chantix, Champix), a niocotine inhaler or nasal spray. Each has its unique advantage and side effects which your doctor can review with you. Health Benefits Of Quitting: The benefits of quitting start right away and keep improving the longer you go without smokin minutes: blood pressure and pulse return to normal 8 hours: oxygen levels return to normal 2 days: ability to smell and taste begins to improve as damaged nerves start to regrow 2-3 weeks: circulation and lung function improves 1-9 months: decreased cough, congestion and shortness of breath; less tired 1 year: risk of heart attack decreases by half 5 years: risk of lung cancer decreases by half; risk of stroke becomes the same as a non-smoker For information about how to quit smoking, visit the following links: National [employer] [place] , Clearing the Air, Quit Smoking Today - an online booklet. http://www.smokefree.gov/pubs/clearing_the_air.pdf Smokefree.gov http://smokefree.gov/ QuitNet http://www.quitnet.com/ Albuterol Sulfate Nebulizer solution What is this medicine? ALBUTEROL (al BYOO ter ole) is a bronchodilator. It helps to open up the airways in your lungs to make it easier to breathe. This medicine is used to treat and to prevent bronchospasm. How should I use this medicine? This medicine is used in a nebulizer. Nebulizers make a liquid into an aerosol that you breathe in through your mouth or your mouth and nose into your lungs. You will be taught how to use your nebulizer. Follow the directions on your prescription label. Take your medicine at regular intervals. Do not use more often than directed. Talk to your capacitor tester regarding the use of this medicine in children. Special care may be needed. What side effects may I notice from receiving this medicine? Side effects that you should report to your doctor or health zoo caretaker as soon as possible: allergic reactions like skin rash, itching or hives, swelling of the face, lips, or tongue breathing problems chest pain feeling faint or lightheaded, falls high blood pressure irregular heartbeat fever muscle cramps or weakness pain, tingling, numbness in the hands or feet vomiting Side effects that usually do not require medical attention (report to your doctor or health zoo caretaker if they continue or are bothersome): cough difficulty sleeping headache nervousness, trembling stomach upset stuffy or runny nose throat irritation unusual taste What may interact with this medicine? anti-infectives like chloroquine and pentamidine caffeine cisapride diuretics medicines for colds medicines for depression or emotional or psychotic conditions medicines for weight loss including some herbal products methadone some antibiotics like clarithromycin, erythromycin, levofloxacin, and linezolid some heart medicines steroid hormones like dexamethasone, cortisone, hydrocortisone theophylline thyroid hormones What if I miss a dose? If you miss a dose, use it as soon as you can. If it is almost time for your next dose, use only that dose. Do not use double or extra doses. Where should I keep my medicine? Keep out of the reach of children. Store between 2 and 25 degrees C (36 and 77 degrees F). Do not freeze. Protect from light. Throw away any unused medicine after the expiration date. Most products are kept in the foil package until time of use. Some products can be used up to 1 week after they are removed from the foil pouch. Check the instructions that come with your medicine. What should I tell my health care provider before I take this medicine? They need to know if you have any of the following conditions: diabetes heart disease or irregular heartbeat high blood pressure pheochromocytoma seizures thyroid disease an unusual or allergic reaction to albuterol, levalbuterol, sulfites, other medicines, foods, dyes, or preservatives or trying to get breast-feeding What should I watch for while using this medicine? Tell your doctor or health zoo caretaker if your symptoms do not improve. Do not use extra albuterol. Call your doctor right away if your asthma or bronchitis gets worse while you are using this medicine. If your mouth gets dry try chewing sugarless gum or sucking hard candy. Drink water as directed. Prednisone Oral tablet What is this medicine? PREDNISONE (PRED ni sone) is a corticosteroid. It is commonly used to treat inflammation of the skin, joints, lungs, and other organs. Common conditions treated include asthma, allergies, and arthritis. It is also used for other conditions, such as blood disorders and diseases of the adrenal glands. How should I use this medicine? Take this medicine by mouth with a glass of water. Follow the directions on the prescription label. Take this medicine with food. If you are taking this medicine once a day, take it in the morning. Do not take more medicine than you are told to take. Do not suddenly stop taking your medicine because you may develop a severe reaction. Your doctor will tell you how much medicine to take. If your doctor wants you to stop the medicine, the dose may be slowly lowered over time to avoid any side effects. Talk to your capacitor tester regarding the use of this medicine in children. Special care may be needed. What side effects may I notice from receiving this medicine? Side effects that you should report to your doctor or health zoo caretaker as soon as possible: allergic reactions like skin rash, itching or hives, swelling of the face, lips, or tongue changes in emotions or moods changes in vision depressed mood eye pain fever or chills, cough, sore throat, pain or difficulty passing urine increased thirst swelling of ankles, feet Side effects that usually do not require medical attention (report to your doctor or health zoo caretaker if they continue or are bothersome): confusion, excitement, restlessness headache nausea, vomiting skin problems, acne, thin and shiny skin trouble sleeping weight gain What may interact with this medicine? Do not take this medicine with any of the following medications: metyrapone mifepristone This medicine may also interact with the following medications: aminoglutethimide amphotericin B aspirin and aspirin-like medicines barbiturates certain medicines for diabetes, like glipizide or glyburide cholestyramine cholinesterase inhibitors cyclosporine digoxin diuretics ephedrine female hormones, like estrogens and control pills isoniazid ketoconazole NSAIDS, medicines for pain and inflammation, like ibuprofen or naproxen phenytoin rifampin toxoids vaccines warfarin What if I miss a dose? If you miss a dose, take it as soon as you can. If it is almost time for your next dose, talk to your doctor or health zoo caretaker. You may need to miss a dose or take an extra dose. Do not take double or extra doses without advice. Where should I keep my medicine? Keep out of the reach of children. Store at room temperature between 15 and 30 degrees C (59 and 86 degrees F). Protect from light. Keep container tightly closed. Throw away any unused medicine after the expiration date. What should I tell my health care provider before I take this medicine? They need to know if you have any of these conditions: Louis's syndrome diabetes glaucoma heart disease high blood pressure infection (especially a virus infection such as chickenpox, cold sores, or herpes) kidney disease liver disease mental illness myasthenia gravis osteoporosis seizures stomach or intestine problems thyroid disease an unusual or allergic reaction to lactose, prednisone, other medicines, foods, dyes, or preservatives or trying to get breast-feeding What should I watch for while using this medicine? Visit your doctor or health zoo caretaker for regular checks on your progress. If you are taking this medicine over a prolonged period, carry an identification card with your name and address, the type and dose of your medicine, and your doctor's name and address. This medicine may increase your risk of getting an infection. Tell your doctor or health zoo caretaker if you are around anyone with measles or chickenpox, or if you develop sores or blisters that do not heal properly. If you are going to have surgery, tell your doctor or health zoo caretaker that you have taken this medicine within the last twelve months. Ask your doctor or health zoo caretaker about your diet. You may need to lower the amount of salt you eat. This medicine may affect blood sugar levels. If you have diabetes, check with your doctor or health zoo caretaker before you change your diet or the dose of your diabetic medicine. You have been given the following additional information: COPD Flare Smoking Cessation Albuterol Sulfate Nebulizer solution Prednisone Oral tablet (Electronically signed by Jacinto Ness Dr. 09/22/2016 4:53)
--- NOTE | 2016-09-22 05:08 | ED MAR SUMMARY ---
..... Medication Administration [facility] [address] [place] [address] Patient: MENDEL OLEARY Visit ID: [id number] 40y, M Weight: 95.2 kg Height/Length: 67 in BMI: 32.9 ALLERGIES: No Known Drug Allergy Given 03:36 09/22/2016 Markel Lara R.N. Medication Administered: DUONEB [NEB TX] (IPRATROPIUM-ALBUTEROL), Dose: 1 unit dose Nebulizer Neb TX. Medication Ordered: DuoNeb Neb Tx 1 unit dose (NOW). Given 03:37 09/22/2016 Markel Lara R.N. Medication Administered: PREDNISONE [PO], Dose: 40 mg Tablets PO. Medication Ordered: Prednisone PO 40 mg (NOW). Given 04:14 09/22/2016 Markel Lara R.NLisa Medication Administered: DUONEB [NEB TX] (IPRATROPIUM-ALBUTEROL), Dose: 1 unit dose Nebulizer Neb TX. Medication Ordered: DuoNeb Neb Tx 1 unit dose (NOW). Given 04:32 09/22/2016 Markel Lara R.N. Medication Administered: LEVOFLOXACIN [PO], Dose: 500 mg Tablets PO. Medication Ordered: Levofloxacin PO 500 mg (NOW).
--- NOTE | 2016-09-22 05:08 | ED MAR SUMMARY ---
..... Medication Administration Record Merged With [facility] [address] [place] [address] Patient: MENDEL OLEARY Visit ID: [id number] 40y, M Weight: 95.2 kg Height/Length: 67 in BMI: 32.9 ALLERGIES: No Known Drug Allergy Given 03:36 09/22/2016 Markel Lara R.N. Medication Administered: DUONEB [NEB TX] (IPRATROPIUM-ALBUTEROL), Dose: 1 unit dose Nebulizer Neb TX. Medication Ordered: DuoNeb Neb Tx 1 unit dose (NOW). Given 03:37 09/22/2016 Markel Lara R.N. Medication Administered: PREDNISONE [PO], Dose: 40 mg Tablets PO. Medication Ordered: Prednisone PO 40 mg (NOW). Given 04:14 09/22/2016 Markel Lara R.NLisa Medication Administered: DUONEB [NEB TX] (IPRATROPIUM-ALBUTEROL), Dose: 1 unit dose Nebulizer Neb TX. Medication Ordered: DuoNeb Neb Tx 1 unit dose (NOW). Given 04:32 09/22/2016 Markel Lara R.N. Medication Administered: LEVOFLOXACIN [PO], Dose: 500 mg Tablets PO. Medication Ordered: Levofloxacin PO 500 mg (NOW).
--- NOTE | 2016-09-22 06:23 | DIAGNOSTIC IMAGING REPORT ---
PROCEDURE: XR CHEST 1 VIEW INDICATION: SHORTNESS OF BREATH TECHNIQUE: Portable AP view 03:53 a.m. COMPARISON: Chest x-ray 09/09/2016 FINDINGS: Lungs are clear. Heart and mediastinum are normal. Thorax is normal. No significant interval change. IMPRESSION: 1. Negative chest.
== END 2016-09-22 05:03 | disposition home or self-care (01) ==
LOC: ED SRH 03:11
DX: J44.1 Chronic obstructive pulmonary disease with (acute) exacerbation (principal); I10 Essential (primary) hypertension; F17.210 Nicotine dependence, cigarettes, uncomplicated